=== PATIENT | male | born 1930 | race Caucasian/White ===

== ENCOUNTER 2017-02-10 00:09 | Inpatient (IN) | payer MEDICARE, OTHER ==
[~2017-02-10] VITALS: Ht 182.9 cm; Wt 81.6 kg
[~2017-02-10 00:09] MED LIST: ALLO100T PO; APIX5TAB PO; CIPR500T94 PO; DOXY100C2 PO; LEVO500T38 PO; QUIN20TA7 PO; SIMV10TA3 PO; TAMS0.4C2 PO
--- NOTE | 2017-02-10 00:37 | PHYS DOC ---
Past Medical History Past Medical History: Hypertension, Other Additional Past Medical Histor: urinary retention, ENLARGED PROSTATE Past Surgical History: Tonsillectomy, Other Additional Past Surgical Histo: hernia Alcohol Use: Occasionally Drug Use: None Adult General Chief Complaint Chief Complaint: URINARY FREQUENCY [facility] HPI Patient is a 87 year old male who presents with urinary incontinence for the past 4 hours. Patient states he had the urge to go have her can make to the bathroom. Patient denies any fevers chills. Patient denies any burning urination. Patient states this has not happened to him before. Patient has no other complaints. Patient denies any prostate issues. Pertinent exam findings: Mild suprapubic tenderness ED course: CBC, CMP, UA ordered 0139: Lab results were explained to the patient who states he is still incontinent of urine and complains of suprapubic abdominal pain therefore will order a CT scan of the abdomen and pelvis with contrast at this time 0232: Discussed CT results with the patient and the plan to admit the hospital for further evaluation and management 0233: We'll patient to Dr. Adam Pertinent results: 1. There is moderate bilateral hydroureteronephrosis. There is bilateral periureteral stranding and severe left perinephric stranding. No obstructing process is seen. The bladder is moderately distended but is not thick walled. The prostate is moderately enlarged and heterogeneous. Findings may be due to bladder outlet obstruction. 2. There is a large right inguinal hernia extending down into the scrotum that contains multiple nondilated distal small bowel loops. The hernia has a wide neck. There is no small bowel obstruction. ED decision-making: After reviewing the chart, chief complaint, history of present illness, past medical history, physical exam, lab results, CT results will but the patient for further evaluation and management for his bilateral hydronephrosis and hydroureter ingunal hernia. We'll place a Peters the patient to help relief the bladder outlet obstruction Review of Systems Review of Systems Constitutional: Denies fever or chills [] Eyes: Denies change in visual acuity, redness, or eye pain [] HENT: Denies nasal congestion or sore throat [] Respiratory: Denies cough or shortness of breath [] Cardiovascular: No additional information not addressed in HPI [] GI: Denies abdominal pain, nausea, vomiting, bloody stools or diarrhea [] : Incontinent Musculoskeletal: Denies back pain or joint pain [] Integument: Denies rash or skin lesions [] Neurologic: Denies headache, focal weakness or sensory changes [] Endocrine: Denies polyuria or polydipsia [] Current Medications Current Medications Current Medications Medications (Trade) Dose Ordered Sig/Catracho Start Time Stop Time Status Last Admin Dose Admin Info (Do NOT chart on this entry -- for MONITORING) 1 each PRN DAILY PRN 02/10/17 01:45 02/12/17 01:44 Iohexol (Omnipaque 300 Mg/ml) 75 ml 1X ONCE 02/10/17 02:00 02/10/17 02:01 DC 02/10/17 02:05 75 ML Allergies Allergies Allergies Coded Allergies Type Severity Reaction Last Updated Verified Penicillins Allergy Intermediate HIVES 05/08/16 No Physical Exam Physical Exam Constitutional: Well developed, well nourished, no acute distress, non-toxic appearance. [] HENT: Normocephalic, atraumatic, bilateral external ears normal, oropharynx moist, no oral exudates, nose normal. [] Eyes: PERRLA, EOMI, conjunctiva normal, no discharge. [] Neck: Normal range of motion, no tenderness, supple, no stridor. [] Cardiovascular:Heart rate regular rhythm, no murmur [] Lungs & Thorax: Bilateral breath sounds clear to auscultation [] Abdomen: Bowel sounds normal, soft, mild suprapubic tenderness, no masses, no pulsatile masses. [] Skin: Warm, dry, no erythema, no rash. [] Back: No tenderness, no CVA tenderness. [] Extremities: No tenderness, no cyanosis, no clubbing, ROM intact, no edema. [] Neurologic: Alert and oriented X 3, normal motor function, normal sensory function, no focal deficits noted. [] Psychologic: Affect normal, judgement normal, mood normal. [] Current Patient Data Vital Signs Vital Signs Date Time Temp Pulse Resp B/P (MAP) Pulse Ox O2 Delivery O2 Flow Rate FiO2 02/10/17 00:20 97.6 90 16 142/61 (88) 94 Room Air 97.6 Lab Values Laboratory Tests Test 02/10/17 00:39 White Blood Count 10.7 x10^3/uL (4.0-11.0) Red Blood Count 5.51 x10^6/uL (4.30-5.70) Hemoglobin 15.3 g/dL (13.0-17.5) Hematocrit 44.8 % (39.0-53.0) Mean Corpuscular Volume 81 fL (79-100) Mean Corpuscular Hemoglobin 28 pg (25-35) Mean Corpuscular Hemoglobin Concent 34 g/dL (31-37) Red Cell Distribution Width 13.4 % (11.5-14.5) Platelet Count 160 x10^3/uL (140-400) Neutrophils (%) (Auto) 86 % (31-73) H Lymphocytes (%) (Auto) 9 % (24-48) L Monocytes (%) (Auto) 4 % (0-9) Eosinophils (%) (Auto) 1 % (0-3) Basophils (%) (Auto) 0 % (0-3) Neutrophils # (Auto) 9.2 x10^3uL (1.8-7.7) H Lymphocytes # (Auto) 1.0 x10^3/uL (1.0-4.8) Monocytes # (Auto) 0.5 x10^3/uL (0.0-1.1) Eosinophils # (Auto) 0.1 x10^3/uL (0.0-0.7) Basophils # (Auto) 0.0 x10^3/uL (0.0-0.2) Segmented Neutrophils % 86 % (35-66) H Band Neutrophils % 4 % (0-9) Lymphocytes % 8 % (24-48) L Monocytes % 2 % (0-10) Platelet Estimate Adequate (ADEQUATE) Ovalocytes Occ Marie Cells Occ Urine Collection Type Unknown Urine Color Yellow Urine Clarity Clear Urine pH 6.5 Urine Specific [place] 1.010 Urine Protein Negative mg/dL (NEG-TRACE) Urine Glucose (UA) Negative mg/dL (NEG) Urine Ketones (Stick) Negative mg/dL (NEG) Urine Blood Moderate (NEG) Urine Nitrite Negative (NEG) Urine Bilirubin Negative (NEG) Urine Urobilinogen Dipstick 0.2 mg/dL (0.2 mg/dL) Urine Leukocyte Esterase Negative (NEG) Urine RBC 3-5 /HPF (0-2) Urine WBC 0 /HPF (0-4) Urine Squamous Epithelial Cells Occ /LPF Urine Bacteria 0 /HPF (0-FEW) Sodium Level 143 mmol/L (136-145) Potassium Level 3.6 mmol/L (3.5-5.1) Chloride Level 106 mmol/L (98-107) Carbon Dioxide Level 24 mmol/L (21-32) Anion Gap 13 (6-14) Blood Urea Nitrogen 14 mg/dL (8-26) Creatinine 1.0 mg/dL (0.7-1.3) Estimated GFR (Cockcroft-Gault) 70.8 BUN/Creatinine Ratio 14 (6-20) Glucose Level 128 mg/dL (70-99) H Calcium Level 9.5 mg/dL (8.5-10.1) Total Bilirubin 1.0 mg/dL (0.2-1.0) Aspartate Amino Transferase (AST) 18 U/L (15-37) Alanine Aminotransferase (ALT) 18 U/L (16-63) Alkaline Phosphatase 59 U/L (46-116) Total Protein 7.2 g/dL (6.4-8.2) Albumin 4.0 g/dL (3.4-5.0) Albumin/Globulin Ratio 1.3 (1.0-1.7) Laboratory Tests 02/10/17 00:39 Laboratory Tests 02/10/17 00:39 EKG EKG [] Radiology/Procedures Radiology/Procedures CT abd and pelvis 1. There is moderate bilateral hydroureteronephrosis. There is bilateral periureteral stranding and severe left perinephric stranding. No obstructing process is seen. The bladder is moderately distended but is not thick walled. The prostate is moderately enlarged and heterogeneous. Findings may be due to bladder outlet obstruction. 2. There is a large right inguinal hernia extending down into the scrotum that contains multiple nondilated distal small bowel loops. The hernia has a wide neck. There is no small bowel obstruction.[] Course & Med Decision Making Course & Med Decision Making Pertinent Labs and Imaging studies reviewed. (See chart for details) [] Dragon Disclaimer Dragon Disclaimer This electronic medical record was generated, in whole or in part, using a voice recognition dictation system. Departure Departure Impression: Primary Impression: Bladder outlet obstruction Additional Impressions: Hydronephrosis Inguinal hernia Disposition: 09 ADMITTED INPATIENT Admitting Physician: Jose Adam Condition: STABLE Referrals: ARPAN ANDERSON Jr, MD (PCP) Problem Qualifiers Additional Impressions: Hydronephrosis Hydronephrosis type: unspecified Qualified Codes: N13.30 - Unspecified hydronephrosis Inguinal hernia Obstruction and gangrene presence: without obstruction or gangrene Laterality : unilateral Recurrence: non-recurrent Qualified Codes: K40.90 - Unilateral inguinal hernia, without obstruction or gangrene, not specified as recurrent MALIA DAWSON DO February 10, 2017 00:37
[2017-02-10 00:50] LABS: BASO % 0 % (0-3); EOS % 1 % (0-3); HEMATOCRIT 44.8 % (39.0-53.0); HEMOGLOBIN 15.3 g/dL (13.0-17.5); LYMPH % 9 % (24-48); MEAN CORPUSCULAR HEMOGLOBIN 28 pg (25-35); MEAN CORPUSCULAR HGB CONC 34 g/dL (31-37); MEAN CORPUSCULAR VOLUME 81 fL (79-100); MONO % 4 % (0-9); NEUT % 86 % (31-73); PLATELET COUNT 160 x10^3/uL (140-400); RED BLOOD COUNT 5.51 x10^6/uL (4.30-5.70); RED CELL DISTRIBUTION WIDTH 13.4 % (11.5-14.5); WHITE BLOOD COUNT 10.7 x10^3/uL (4.0-11.0)
[2017-02-10 00:53] LABS: BILIRUBIN,URINE NEGATIVE (NEG); GLUCOSE,URINE NEGATIVE (NEG); NITRITE,URINE NEGATIVE (NEG); PH,URINE 6.5; PROTEIN,URINE NEGATIVE (NEG-TRACE); UROBILINOGEN,URINE 0.2 mg/dL (0.2 mg/dL)
[2017-02-10 01:02] LABS: CALCIUM 9.5 mg/dL (8.5-10.1); GFR 70.8; POTASSIUM 3.6 mmol/L (3.5-5.1)
[2017-02-10 01:10] LABS: ALBUMIN/GLOBULIN RATIO 1.3 (1.0-1.7); TOTAL PROTEIN 7.2 g/dL (6.4-8.2)
[2017-02-10 01:18] LABS: BACTERIA,URINE 0 /HPF (0-FEW); SQUAMOUS EPITHELIAL CELL,UR OCC /LPF; WBC,URINE 0 /HPF (0-4)
[2017-02-10 01:30] LABS: BURR CELLS OCC; OVALOCYTES OCC; PLT ESTIMATE ADEQUATE (ADEQUATE)
[2017-02-10] MEDS ORDERED: CONTRAST GIVEN MC PRN (01:45)
[2017-02-10] MEDS ORDERED: IOHEXOL 300 MG/ML 75 ML VIAL IV ONE (02:00)
--- NOTE | 2017-02-10 02:20 | RAD ---
PROCEDURE CT abdomen pelvis with contrast. HISTORY Urinary frequency, incontinence. Suprapubic abdominal pain. TECHNIQUE Helical CT imaging of the abdomen and pelvis is performed after 75 cc Omnipaque 300 IV contrast. Oral contrast not given. PQRS: One or more the following individualized dose reduction techniques were utilized for the study: 1. Automated exposure control. 2. Adjustment of the mA and/or kV according to patient size. 3. Use of iterative reconstruction technique. COMPARISON None. FINDINGS Lung bases clear. Cardiac size normal. Coronary artery disease. Calcified granulomas in the spleen. Spleen size upper limits of normal. The liver, gallbladder, pancreas, adrenal glands, and abdominal aortic caliber are normal. There is moderate bilateral hydroureteronephrosis. There is severe left perinephric stranding. There is bilateral periureteral stranding. An obstructing calculus is not seen. The bladder is moderately distended. No urinary bladder wall thickening. The prostate is moderately enlarged and heterogeneous. There is a punctate nonobstructing right renal calculus. Stomach unremarkable. Small duodenal diverticulum. There is a large right inguinal hernia extending down in to the scrotum that contains multiple loops of nondilated small bowel. There are a few diverticula of the sigmoid colon without inflammation. The appendix is normal. Terminal ileum is normal. No pelvic free fluid. Mild right convexity lumbar scoliosis. There is degenerative spondylosis. IMPRESSION 1. There is moderate bilateral hydroureteronephrosis. There is bilateral periureteral stranding and severe left perinephric stranding. No obstructing process is seen. The bladder is moderately distended but is not thick walled. The prostate is moderately enlarged and heterogeneous. Findings may be due to bladder outlet obstruction. 2. There is a large right inguinal hernia extending down into the scrotum that contains multiple nondilated distal small bowel loops. The hernia has a wide neck. There is no small bowel obstruction. Electronically signed by: Torrey Adame MD (February 10, 2017 02:18:11)
--- NOTE | 2017-02-10 03:27 | ACF ---
Admission Forms Criteria UROLOGIC DISEASE GRG Clinical Indications for Admission to Inpatient Care (Place ' X' for any and all applicable criteria): Hospital admission is needed for appropriate care of the patient because of 1 or more of the following: [X]I. New-onset Reduced urine output, or hydronephrosis remaining after emergency or observation level care (as appropriate ) [ ]II. Renal disease needing inpatient care indicated by 1 or more of the following(2)(3)(4): [ ]a) Acute renal failure [ ]b) Significant uremic complications [ ]c) Acute kidney injury (that does not qualify as Acute renal failure ) requiring inpatient care indicated by ALL of the following(5)(6)(7)(8) (9): [ ]i) Worsening clinical status (eg, rising creatinine) despite outpatient and observation care treatment (eg, hydration) [ ]ii) Acute kidney injury indicated by 1 or more of the following: [ ]1) 2-fold or more rise in serum creatinine from baseline [ ]2) Reduction of more than 50% in estimated glomerular filtration rate from baseline [ ]3) Urine output less than 0.5 mL/kg/hr for 12 hours despite adequate volume status [ ]d) Systemic cause (eg, Goodpasture syndrome ) needing inpatient care [ ]e) Rapidly progressive renal disease needing inpatient care (eg, plasmapheresis, immunosuppression ) Anasarca needing inpatient care [ ]f) Hemoptysis [ ]g) Hemolysis, thrombosis, or infraction [ ]h) Anasarca needing inpatient care [ ]III. New-onset or uncontrolled nephrogenic diabetes insipidus [ ]IV. Urologic infection requiring inpatient care as indicated by 1 or more of the following(10)(11)(12): [ ]a) Hemodynamic instability [ ]b) Dehydration that is severe or persistent [ ]c) Failure of outpatient treatment [ ]d) Nati's gangrene [ ]e) Urinary obstruction [ ]f) Immunocompromised state (eg, chronic steroid use ) [ ]g) Known renal or urologic abnormalities(eg, indwelling catheter, structural abnormalities ) [ ]h) Recent urologic manipulation or procedure Urinary obstruction [ ]i) Abscess requiring drainage Immunocompromised state [ ]V. Acute urinary retention requiring inpatient management as indicated by ANY ONE of the following(1)(13): [ ]a) Retention cannot be alleviated via emergency or observation level care (eg, urinary catheter placement) [ ]b) Hemodynamic instability [ ]c) Acute neurologic etiology (eg, cauda equina) [ ]d) Dehydration or other complications not manageable with emergency or observation level care [ ]e) Acute kidney injury (that does not qualify as Acute renal failure ) requiring inpatient care indicated by ALL of the following(5)(6)(7)(8) (9): [ ]i) Acute kidney injury indicated by ANY ONE of the following: [ ]1) 2-fold or more rise in serum creatinine from baseline [ ]2) Reduction of more than 50% in estimated glomerular filtration rate from baseline [ ]ii) Worsening clinical status (eg, rising creatinine) despite outpatient and observation care treatment (eg, hydration) [ ]. Gross hematuria requiring inpatient management as indicated by ANY ONE of the following(1)(2): [ ]a) Evidence of renal obstruction [ ]b) Reduced urine output [ ]c) Clot retention after urinary catheterization and irrigation [ ]d) Severe Anemia [ ]e) Systemic cause needing inpatient treatment (eg, Goodpasture syndrome) [ ]VII. Priapism not responsive to emergency or observation care treatment [ ]VII. Scrotal, testicular, or epididymal disorder requiring inpatient care indicated by 1 or more of the following(1)(14)(15)(16): [ ]a) Scrotal edema or infection not manageable with emergency or observation level care [ ]b) Orchitis not manageable with emergency or observation level care [ ]c) Epididymitis not manageable with emergency or observation level of care [ ]d) Other scrotal, testicular, or epididymal disorder (eg, infection, inflammation) not manageable with emergency or observation level care [ ]IX. Complications of transplanted kidney indicated by 1 or more of the following [ ]a) Acute graft rejection requiring inpatient management (eg, intravenous immunosuppression) [ ]b) Acute kidney injury indicated by ALL of the following i) Acute kidney injury indicated by 1 or more of the following 1) 2-fold or more rise in serum creatinine from baseline 2) Reduction of more than 50% in estimated glomerular filtration rate from baseline 3) Urine output less than 0.5 mL/kg/hr for 12 hours despite adequate volume status ii) Kidney injury too severe or not responsive to outpatient and observation care treatment (eg, hydration) [ ]c) Infection requiring inpatient management (eg, Hemodynamic instability, need for intravenous antimicrobial treatment) [ ]d) Other complication of transplanted kidney requiring patient management (eg, severe diarrhea leading to malabsorption) [ ]X. Trauma to renal, genital, or urologic system requiring inpatient medical care [ ]XI. Urologic Disease condition, symptom, or finding for which emergency and observation care have failed or are not considered appropriate. The original [employer] content created by [employer] has been revised. The portions of the content which have been revised are identified through the use of italic text or in bold, and [facility] has neither reviewed nor approved the modified material. All other unmodified content is copyright [employer]. Please see references footnoted in the original [employer] edition 2016 Admission Criteria Met?: Yes CHRIS TSAI February 10, 2017 03:27
[2017-02-10] MEDS ORDERED: IV NORMAL SALINE 1000ML BAG 1,000 ML IV SCH (03:52)
[2017-02-10] MEDS ORDERED: ONDANSETRON PF 4 MG/2 ML VIAL. IV PRN (04:00)
[2017-02-10] MEDS: MORPHINE SULFATE 4 MG/ML DISP.SYRIN. IV PRN ×2 (04:05→07:38)
[2017-02-10 06:45] VITALS: BP 188/101
[2017-02-10 06:55] VITALS: BP 145/82
[2017-02-10 10:50] VITALS: BP 169/99
[2017-02-10] MEDS ORDERED: APIXABAN 5 MG TABLET. PO SCH (11:30)
[2017-02-10] MEDS ORDERED: TAMSULOSIN 0.4 MG CAP.ER.24H. PO SCH (11:30)
[2017-02-10] MEDS ORDERED: LISINOPRIL 20 MG TABLET PO SCH (11:30)
[2017-02-10] MEDS ORDERED: amLODIPine BESYLATE 10 MG TABLET PO SCH (12:00)
[2017-02-10 12:07] LABS: INR 1.2 (0.8-1.1); PROTHROMBIN TIME PATIENT 14.9 SEC (11.7-14.0)
[2017-02-10] MEDS ORDERED: ALLOPURINOL 100 MG TABLET. PO SCH (13:00)
--- NOTE | 2017-02-10 13:36 | HP ---
ADMIT DATE: 02/10/2017 CHIEF COMPLAINT: Abdominal pain and urinary frequency. HISTORY OF PRESENT ILLNESS: The patient is a pleasant, 87-year-old male presents with severe urinary hesitation and frequency. We noted that he has had greater than 1000 mL of urine in his bladder. He seems to have severe prostate issues. We tried to place a Peters, is not really working very well. We consulted Genitourinary ____. The plan is to have a suprapubic Peters catheter placed by Interventional Radiology, should be noted the patient also has hydronephrosis and incidentally has a significant right inguinal hernia. PAST MEDICAL HISTORY: Noncompliance, hypertension, BPH, tonsillectomy and hernia. ALLERGIES: PENICILLIN. FAMILY HISTORY: Hypertension. SOCIAL HISTORY: Does not drink, smoke or take drugs. He is retired man. MEDICATIONS: Reviewed, please refer to the MRAD. REVIEW OF SYSTEMS: GENERAL: No history of weight change, weakness or fevers. SKIN: No bruising, hair changes or rashes. EYES: No blurred, double or loss of vision. NOSE AND THROAT: No history of nosebleeds, hoarseness or sore throat. HEART: No history of palpitations, chest pain or shortness of breath on exertion. LUNGS: Denies cough, hemoptysis, wheezing or shortness of breath. GASTROINTESTINAL: He complains of abdominal pain and right inguinal hernia. GENITOURINARY: He complains of urinary frequency. NEUROLOGIC: Denies history of numbness, tingling, tremor or weakness. PSYCHIATRIC: No history of panic, anxiety or depression. ENDOCRINE: No history of heat or cold intolerance, polyuria or polydipsia. EXTREMITIES: Denies muscle weakness, joint pain, pain on walking or stiffness. PHYSICAL EXAMINATION: VITAL SIGNS: Temperature afebrile, pulse 98, respirations 18, blood pressure 135/90. GENERAL: He is alert, cooperative. HEART: Normal S1, S2. LUNGS: Clear. ABDOMEN: Soft, positive bowel sounds. Tender in the lower quadrants. He has got right inguinal hernia. EXTREMITIES: No edema. SKIN: No rashes. PSYCHIATRIC: He is stable. VASCULAR: Good capillary refill. ENDOCRINE: No thyromegaly. LYMPHATICS: No cervical nodes. HEMATOPOIETIC: No bruising. GENITOURINARY: He has got a Peters in place, but showing not working. LABORATORY DATA: White count 10, hemoglobin 15, platelets 160. Electrolytes are normal. ASSESSMENT AND PLAN: Severe BPH with bladder obstruction. The patient has been admitted, will consult ____ for suprapubic Peters catheter. Regarding the inguinal hernia, we are consulting Dr. Acosta, gentle IV fluids, PT, OT. Resume home medicines. PROGNOSIS: Guarded. ARRON ADHIKARI DO DR: YENNIFER/rivka JOB#: [id number] / [id number]
[2017-02-10] MEDS ORDERED: SIMVASTATIN 10 MG TABLET PO SCH (21:00)
== END 2017-02-10 14:36 | disposition short-term general hospital (02) | DRG 726 ==
LOC: ER 00:09 → 6 SOUTH 02:32
PROVIDERS: ADMIT Internal Medicine; ATTEND Internal Medicine
DX: N40.1 Benign prostatic hyperplasia with lower urinary tract symptoms (principal); N13.30 Unspecified hydronephrosis; K40.90 Unilateral inguinal hernia, without obstruction or gangrene, not specified as recurrent; I10 Essential (primary) hypertension; R35.0 Frequency of micturition; Z88.0 Allergy status to penicillin; Z91.19 Patient's noncompliance with other medical treatment and regimen; Z82.49 Family history of ischemic heart disease and other diseases of the circulatory system; N32.0 Bladder-neck obstruction
CPT/HCPCS: 36415; 74177; 80053; 81001; 85007; 85027; 85610; 96361; 96374; A4314; J2270; J2405; J7030; Q9967; 99285-25

== ENCOUNTER 2017-02-10 20:52 | Emergency (ER) | payer MEDICARE, OTHER ==
[2017-02-10 21:00] VITALS: BP 125/60
--- NOTE | 2017-02-10 21:38 | PHYS DOC ---
Past Medical History Past Medical History: Hypertension, Other Additional Past Medical Histor: urinary retention, ENLARGED PROSTATE Past Surgical History: Tonsillectomy, Other Additional Past Surgical Histo: hernia Alcohol Use: Occasionally Drug Use: None Adult General Chief Complaint Chief Complaint: OTHER COMPLAINTS HPI HPI Patient is a 87 year old male with history of hypertension and BPH who presents today with catheter problem. Patient states he got a catheter placed at [facility] today and he wants it adjusted so that he is comfortable. Patient has no other complaints. He is a very poor historian. Review of Systems Review of Systems Constitutional: Denies fever or chills [] Eyes: Denies change in visual acuity, redness, or eye pain [] HENT: Denies nasal congestion or sore throat [] Respiratory: Denies cough or shortness of breath [] Cardiovascular: No additional information not addressed in HPI [] GI: Denies abdominal pain, nausea, vomiting, bloody stools or diarrhea [] : catheter adjustment Musculoskeletal: Denies back pain or joint pain [] Integument: Denies rash or skin lesions [] Neurologic: Denies headache, focal weakness or sensory changes [] Endocrine: Denies polyuria or polydipsia [] Allergies Allergies Allergies Coded Allergies Type Severity Reaction Last Updated Verified Penicillins Allergy Intermediate HIVES 05/08/16 No Physical Exam Physical Exam Constitutional: Well developed, well nourished, no acute distress, non-toxic appearance. [] HENT: Normocephalic, atraumatic, bilateral external ears normal, oropharynx moist, no oral exudates, nose normal. [] Eyes: PERRLA, EOMI, conjunctiva normal, no discharge. [] Neck: Normal range of motion, no tenderness, supple, no stridor. [] Cardiovascular:Heart rate regular rhythm, no murmur [] Lungs & Thorax: Bilateral breath sounds clear to auscultation [] Abdomen: Bowel sounds normal, soft, no tenderness, no masses, no pulsatile masses. [] Patient has a catheter with a leg bag well attached to the right leg by the RN. Skin: Warm, dry, no erythema, no rash. [] Back: No tenderness, no CVA tenderness. [] Extremities: No tenderness, no cyanosis, no clubbing, ROM intact, no edema. [] Neurologic: Alert and oriented X 3, normal motor function, normal sensory function, no focal deficits noted. [] Psychologic: Affect normal, judgement normal, mood normal. [] Current Patient Data Vital Signs Vital Signs Date Time Temp Pulse Resp B/P (MAP) Pulse Ox O2 Delivery O2 Flow Rate FiO2 02/10/17 21:00 98.0 80 16 96 Room Air 98.0 EKG EKG [] Radiology/Procedures Radiology/Procedures [] Course & Med Decision Making Course & Med Decision Making Pertinent Labs and Imaging studies reviewed. (See chart for details) This is an 87-year-old male patient very poor historian who presents to the ED today requesting his catheter to be adjusted. He states the catheter was placed by [facility] today but he feels they did not put the leg bag in the right position. The leg bag was adjusted by RN and patient was discharged. F/u with his urologist Deyanira Disclaimer Deyanira Disclaimer This electronic medical record was generated, in whole or in part, using a voice recognition dictation system. Departure Departure Impression: Primary Impression: Malfunction of Peters catheter Disposition: HOME, SELF-CARE Condition: STABLE Referrals: ARPAN ANDERSON Jr, MD (PCP) follow up with your urologist on Sunday GABRIEL KIRBY MD Patient Instructions: Peters Catheter Care, Adult Additional Instructions: We adjusted your Peters catheter. Follow-up with the urologist on Sunday. Problem Qualifiers Primary Impression: Malfunction of Peters catheter Encounter type: initial encounter Qualified Codes: T83.011A - Breakdown ( mechanical) of indwelling urethral catheter, initial encounter GUILLERMO NIETO APRN February 10, 2017 21:38
== END 2017-02-10 21:45 | disposition home or self-care (01) ==
LOC: ER 20:52
DX: T83.011A Breakdown (mechanical) of indwelling urethral catheter, initial encounter (principal); I10 Essential (primary) hypertension; Z98.890 Other specified postprocedural states; N40.0 Benign prostatic hyperplasia without lower urinary tract symptoms; Z88.0 Allergy status to penicillin; Y93.89 Activity, other specified; Y99.8 Other external cause status; Y92.89 Other specified places as the place of occurrence of the external cause
CPT/HCPCS: 99281

== ENCOUNTER 2017-02-12 19:47 | Emergency (ER) | payer MEDICARE, OTHER ==
[2017-02-12 20:14] VITALS: BP 125/60
--- NOTE | 2017-02-12 20:43 | PHYS DOC ---
Past Medical History Past Medical History: Hypertension, Other Additional Past Medical Histor: urinary retention, ENLARGED PROSTATE Past Surgical History: Tonsillectomy, Other Additional Past Surgical Histo: hernia Alcohol Use: Occasionally Drug Use: None Adult General Chief Complaint Chief Complaint: URINE CATHETER PROBLEM [place] Patient is a 87 year old male who presents with a catheter problem. Patient states his catheter disconnected from tube to the back. He has history of BPH and follows up with Dr. Peng. He has an appointment tomorrow morning. Patient denies any difficulty voiding. Denies any fever. Denies any dysuria nausea vomiting. Review of Systems Review of Systems Constitutional: Denies fever or chills [] Eyes: Denies change in visual acuity, redness, or eye pain [] HENT: Denies nasal congestion or sore throat [] Respiratory: Denies cough or shortness of breath [] Cardiovascular: No additional information not addressed in HPI [] GI: Denies abdominal pain, nausea, vomiting, bloody stools or diarrhea [] : Catheter problem Musculoskeletal: Denies back pain or joint pain [] Integument: Denies rash or skin lesions [] Neurologic: Denies headache, focal weakness or sensory changes [] Endocrine: Denies polyuria or polydipsia [] Allergies Allergies Allergies Coded Allergies Type Severity Reaction Last Updated Verified Penicillins Allergy Intermediate HIVES 05/08/16 No Physical Exam Physical Exam Constitutional: Well developed, well nourished, no acute distress, non-toxic appearance. [] HENT: Normocephalic, atraumatic, bilateral external ears normal, oropharynx moist, no oral exudates, nose normal. [] Eyes: PERRLA, EOMI, conjunctiva normal, no discharge. [] Neck: Normal range of motion, no tenderness, supple, no stridor. [] Cardiovascular:Heart rate regular rhythm, no murmur [] Lungs & Thorax: Bilateral breath sounds clear to auscultation [] Abdomen: Bowel sounds normal, soft, no tenderness, no masses, no pulsatile masses. [] Male : Patient has a catheter that is draining well. It was connected by RN. Skin: Warm, dry, no erythema, no rash. [] Back: No tenderness, no CVA tenderness. [] Extremities: No tenderness, no cyanosis, no clubbing, ROM intact, no edema. [] Neurologic: Alert and oriented X 3, normal motor function, normal sensory function, no focal deficits noted. [] Psychologic: Affect normal, judgement normal, mood normal. [] Current Patient Data Vital Signs Vital Signs Date Time Temp Pulse Resp B/P (MAP) Pulse Ox O2 Delivery O2 Flow Rate FiO2 02/12/17 20:14 98.8 80 16 96 Room Air 98.8 EKG EKG [] Radiology/Procedures Radiology/Procedures [] Course & Med Decision Making Course & Med Decision Making Pertinent Labs and Imaging studies reviewed. (See chart for details) Patient is in the ED because he is concerned his catheter was disconnected at the bag. RN reconnected it and he was discharged. He is to follow-up with his own doctor tomorrow, he states he has an appointment tomorrow. Dragon Disclaimer Dragon Disclaimer This electronic medical record was generated, in whole or in part, using a voice recognition dictation system. Departure Departure Impression: Primary Impression: Peters catheter problem Disposition: HOME, SELF-CARE Condition: STABLE Referrals: ARPAN ANDERSON Jr, MD (PCP) follow up with your urologist tomorrow Patient Instructions: Indwelling Urinary Catheter Care-Brief Additional Instructions: Your catheter was connected. Follow-up with the urologist tomorrow as scheduled. Come back to the ED if you have any further concerns. Problem Qualifiers Primary Impression: Peters catheter problem Encounter type: initial encounter Qualified Codes: T83.9XXA - Unspecified complication of genitourinary prosthetic device, implant and graft, initial encounter GUILLERMO NIETO APRN February 12, 2017 20:43
== END 2017-02-12 21:00 | disposition home or self-care (01) ==
LOC: ER 19:47
DX: T83.028A Displacement of other urinary catheter, initial encounter (principal); I10 Essential (primary) hypertension; N40.0 Benign prostatic hyperplasia without lower urinary tract symptoms; Z88.0 Allergy status to penicillin; Y84.6 Urinary catheterization as the cause of abnormal reaction of the patient, or of later complication, without mention of misadventure at the time of the procedure; Y92.89 Other specified places as the place of occurrence of the external cause
CPT/HCPCS: 99284

== ENCOUNTER 2017-02-23 05:29 | Emergency (ER) | payer MEDICARE, OTHER ==
[~2017-02-23] VITALS: Ht 182.9 cm; Wt 81.6 kg
[2017-02-23] MEDS ORDERED: TAMS0.4C2 PO (05:47)
--- NOTE | 2017-02-23 05:48 | PHYS DOC ---
Past Medical History Past Medical History: Hypertension, Other Additional Past Medical Histor: urinary retention, ENLARGED PROSTATE Past Surgical History: Tonsillectomy, Other Additional Past Surgical Histo: hernia Alcohol Use: Occasionally Drug Use: None Adult General Chief Complaint Chief Complaint: URINARY RETENTION HPI HPI Patient is a 87 year old male who presents with inability to urinate since yesterday afternoon. He feels the urge to urinate and has constant minimal suprapubic abdominal pressure. He denies back pain, saddle anesthesia, bowel dysfunction, numbness, tingling, weakness, dysuria, hematuria, fever or chills, nausea or vomiting, constipation, diarrhea. He notes stopping taking Flomax 2 weeks ago because everything was going okay. He states he has had a Peters catheter placed multiple times prior for urinary retention. Review of Systems Review of Systems Constitutional: Denies fever or chills [] Eyes: Denies change in visual acuity, redness, or eye pain [] HENT: Denies nasal congestion or sore throat [] Respiratory: Denies cough or shortness of breath [] Cardiovascular: No additional information not addressed in HPI [] GI: Denies nausea, vomiting, bloody stools or diarrhea [] : Denies dysuria or hematuria [] Musculoskeletal: Denies back pain or joint pain [] Integument: Denies rash or skin lesions [] Neurologic: Denies headache, focal weakness or sensory changes [] Endocrine: Denies polyuria or polydipsia [] Allergies Allergies Allergies Coded Allergies Type Severity Reaction Last Updated Verified Penicillins Allergy Intermediate HIVES 05/08/16 No Physical Exam Physical Exam Constitutional: Well developed, well nourished, no acute distress, non-toxic appearance. [] HENT: Normocephalic, atraumatic, bilateral external ears normal, oropharynx moist, nose normal. [] Eyes: PERRLA, EOMI. [] Neck: Normal range of motion, supple. [] Cardiovascular:Heart rate regular rhythm [] Lungs & Thorax: Bilateral breath sounds clear to auscultation [] Abdomen: Bowel sounds normal, soft, no tenderness. [] Skin: Warm, dry, no erythema, no rash. [] Back: No tenderness, no CVA tenderness. [] Extremities: No tenderness, ROM intact, no edema. [] Neurologic: Alert and oriented X 3, normal motor function, normal sensory function, no focal deficits noted. [] Psychologic: Affect normal, judgement normal, mood normal. [] Current Patient Data Vital Signs Vital Signs Date Time Temp Pulse Resp B/P (MAP) Pulse Ox O2 Delivery O2 Flow Rate FiO2 02/23/17 05:36 97.9 88 16 183/112 (135) 96 Room Air 97.9 Course & Med Decision Making Course & Med Decision Making Catheter placed with approx. 700ml of clear yellow urine out. Has relief of abdominal pressure. Changed to leg bag. Encouraged to take flomax and follow up with urology. Return precautions given. He understands and agrees with plan. Dragon Disclaimer Dragon Disclaimer This electronic medical record was generated, in whole or in part, using a voice recognition dictation system. Departure Departure Impression: Primary Impression: Urinary retention Disposition: HOME, SELF-CARE Condition: STABLE Referrals: ARPAN ANDERSON Jr, MD (PCP) SERENA MAHAJAN DO Patient Instructions: Urinary Retention, Acute, Male, [id number] Additional Instructions: Take tamsulosin daily as prescribed. Follow-up with your primary care doctor and urologist within one week. Please call for appointment. Return for any concerns. Scripts Tamsulosin Hcl (TAMSULOSIN HCL) 0.4 Mg Cap.er.24h 0.4 MG PO DAILY for 30 Days, #30 TAB Prov: Mary ESCALANTE MD 02/23/17 Mary ESCALANTE MD February 23, 2017 05:48
[2017-02-23 06:00] VITALS: BP 150/83
[2017-02-23 06:00] LABS: BILIRUBIN,URINE NEGATIVE (NEG); GLUCOSE,URINE NEGATIVE (NEG); NITRITE,URINE NEGATIVE (NEG); PROTEIN,URINE NEGATIVE (NEG-TRACE)
[2017-02-23 06:05] LABS: WBC,URINE 20-40 /HPF (0-4)
[2017-02-23 06:06] LABS: BACTERIA,URINE MANY /HPF (0-FEW)
[2017-02-23] MEDS ORDERED: SULF1TAB24 PO (18:34)
[2017-02-23] MEDS ORDERED: POTA40LI3 PO (18:34)
== END 2017-02-23 06:08 | disposition home or self-care (01) ==
LOC: ER 05:29
DX: R33.9 Retention of urine, unspecified (principal); I10 Essential (primary) hypertension; N40.0 Benign prostatic hyperplasia without lower urinary tract symptoms; Z88.0 Allergy status to penicillin
CPT/HCPCS: 51702; 81001; 87086; 99284-25

== ENCOUNTER 2017-02-23 15:01 | Emergency (ER) | payer MEDICARE, OTHER ==
[~2017-02-23] VITALS: Ht 182.9 cm; Wt 83.9 kg
[2017-02-23 15:34] VITALS: BP 157/81
--- NOTE | 2017-02-23 16:24 | ED.ADGEN ---
Past Medical History Past Medical History: A-Fib, Hypertension, Prostatitis Additional Past Medical Histor: urinary retention, ENLARGED PROSTATE Past Surgical History: Tonsillectomy, TURP, Other Additional Past Surgical Histo: tumor removal R shoulder Alcohol Use: Occasionally Drug Use: None Adult General Chief Complaint Chief Complaint: BLOOD IN URINE HPI HPI Patient is a 87 year old man, history of atrial fibrillation on Eliquis, with a Peters catheter in place due to urinary retention from enlarged prostate, who presents the emergency department with complaint of hematuria that began this afternoon. Patient states he is having mild cramping in his abdomen and a feeling of "discomfort", but he is draining red tinged urine. He denies any injuries, any back pain or flank pain, any nausea vomiting, any fevers or chills , any focal weakness, numbness, tingling, chest pain, shortness breath or other complaints. He follows with a urologist, has not seen him in some time. He has not recently used any antibiotics or had any other medications or medication changes. No missed doses of medication. Review of Systems Review of Systems Constitutional: Denies fever or chills. [] Eyes: Denies change in visual acuity. [] HENT: Denies nasal congestion or sore throat. [] Respiratory: Denies cough or shortness of breath. [] Cardiovascular: Denies chest pain or edema. [] GI: Denies abdominal pain, nausea, vomiting, bloody stools or diarrhea. [] : Denies dysuria. [Bladder "discomfort", no trauma to the Peters catheter or penile region, noted hematuria about 6 hours ago. Musculoskeletal: Denies back pain or joint pain. [] Integument: Denies rash. [] Neurologic: Denies headache, focal weakness or sensory changes. [] Endocrine: Denies polyuria or polydipsia. [] Lymphatic: Denies swollen glands. [] Psychiatric: Denies depression or anxiety. [] Current Medications Current Medications Current Medications Medications (Trade) Dose Ordered Sig/Catracho Start Time Stop Time Status Last Admin Dose Admin Acetaminophen (Tylenol) 650 mg 1X ONCE 02/23/17 18:30 02/23/17 18:31 DC Potassium Chloride (KCl Oral Soln) 40 meq 1X ONCE 02/23/17 18:45 02/23/17 18:46 Trimethoprim/ Sulfamethoxazole (Bactrim Ds) 1 tab 1X ONCE 02/23/17 18:30 02/23/17 18:31 DC Allergies Allergies Allergies Coded Allergies Type Severity Reaction Last Updated Verified Penicillins Allergy Intermediate HIVES 02/23/17 No Physical Exam Physical Exam Constitutional: Well developed, well nourished, no acute distress, non-toxic appearance. [] HENT: Normocephalic, atraumatic, bilateral external ears normal, oropharynx moist, no oral exudates, nose normal. [] Eyes: PERRLA, EOMI, conjunctiva normal, no discharge. [] Neck: Normal range of motion, no tenderness, supple, no stridor. [] Cardiovascular:Heart rate regular rhythm, no murmur , S1, S2, rubs or gallops. [ ] Lungs & Thorax: Bilateral breath sounds clear to auscultation, no wheezing, rhonchi, rales. No chest or crepitus or tenderness. [] Abdomen: Bowel sounds normal, soft, very mild tenderness palpation in the suprapubic region, no rebound, rigidity, no guarding,, no masses, no pulsatile masses. [] Skin: Warm, dry, no erythema, no rash. [] Back: No tenderness, no CVA tenderness. [] Extremities: No tenderness, no cyanosis, no clubbing, ROM intact, no edema. [] Neurologic: Alert and oriented X 3, normal motor function, normal sensory function, no focal deficits noted. [] Psychologic: Affect normal, judgement normal, mood normal. examination: Patient is uncircumcised, noted of small amount of drainage with retraction of foreskin, glands penis is normal in appearance, with no drainage or lateralizing identified, Peters catheter is in place, with light red urine. No clots identified, urine appears to be draining without issue. Current Patient Data Vital Signs Vital Signs Date Time Temp Pulse Resp B/P (MAP) Pulse Ox O2 Delivery O2 Flow Rate FiO2 02/23/17 15:34 99.3 84 20 157/81 (106) 98 Room Air 99.3 Lab Values Laboratory Tests Test 02/23/17 16:40 02/23/17 17:25 02/23/17 17:36 Urine Collection Type Unknown Urine Color Red Urine Clarity Turbid Urine pH 6.0 Urine Specific [place] 1.015 Urine Protein >=300 mg/dL (NEG-TRACE) Urine Glucose (UA) Negative mg/dL (NEG) Urine Ketones (Stick) 15 mg/dL (NEG) Urine Blood Large (NEG) Urine Nitrite Positive (NEG) Urine Bilirubin Large (NEG) Urine Urobilinogen Dipstick 1.0 mg/dL (0.2 mg/dL) Urine Leukocyte Esterase Large (NEG) Urine RBC Tntc /HPF (0-2) Urine WBC Tntc /HPF (0-4) Urine Squamous Epithelial Cells None /LPF Urine Bacteria Many /HPF (0-FEW) Urine Mucus Slight /LPF Prothrombin Time 16.5 SEC (11.7-14.0) H Prothrombin Time INR 1.4 (0.8-1.1) H PTT 42 SEC (24-38) H POC Hemoglobin 12.6 g/dL (14-18) L POC Hematocrit 37 % (37-52) POC Sodium 141 mmol/L (135-145) POC Potassium 3.1 mmol/L (3.5-5.0) L POC Chloride 100 mmol/L (98-110) POC Total CO2 26 mmol/L (23-32) Anion Gap 18 mmol/L (6-14) H POC Blood Urea Nitrogen 7 mg/dL (8-26) L POC Creatinine 1.0 mg/dL (0.5-1.4) Glucose Level 100 mg/dL (70-99) H POC Ionized Calcium (Ashish) 1.09 mmol/L (1.13-1.32) L Laboratory Tests 02/23/17 17:36 EKG EKG Not indicated. [] Radiology/Procedures Radiology/Procedures Not indicated. [] Course & Med Decision Making Course & Med Decision Making Pertinent Labs and Imaging studies reviewed. (See chart for details) Patient well-appearing, resting comfortable in the emergency department. Urine is positive for nitrates, too numerous to count RBCs, white blood cells and bacteria. Infection with irritation, and use of anticoagulant are likely the cause of the patient's hematuria, which remains mild no shekhar bleeding or clots noted. Peters catheter continues to drain without issue. Patient's coags reveal an INR of 1.4, electrolytes reveal a potassium of 3.1, otherwise are marked, with a creatinine of 1.0. Hemoglobin is 12.6. I did discuss findings as above with the patient's urologist, Dr. Nieves. He requests the patient be initiated on Bactrim, and the patient call him on Sunday to schedule an appointment in the office. I did discuss this with patient, patient is agreeable this plan, we also discussed concerning symptoms that prompt return to the ED. Patient states hypokalemia was treated with oral potassium in the emergency department, he was also given a prescription for 3 days of potassium liquid, was given clear and detailed medication instructions and precautions, was instructed to take food with both his Bactrim and his potassium to prevent stomach upset, to follow-up with his primary care provider for repeat laboratory studies performed. Patient and at bedside voiced understanding and agreement with these instructions and cautions, patient was discharged home in stable condition with prescriptions for potassium, Bactrim, with plan as above. Dragon Disclaimer Dragon Disclaimer This electronic medical record was generated, in whole or in part, using a voice recognition dictation system. Departure Impression: Primary Impression: UTI (urinary tract infection) Additional Impressions: Peters catheter in place Hypokalemia Disposition: HOME, SELF-CARE Condition: STABLE Scripts Potassium Chloride (POTASSIUM CHLORIDE ORAL LIQUID) 40 Meq/15 Ml Liquid 40 MEQ PO DAILY, #50 LIQUID Take 15 mL by mouth once daily for the next 3 days. Please follow the potassium rich dietary instructions. Prov: RICKI ONEILL DO 02/23/17 Sulfamethoxazole/Trimethoprim (BACTRIM DS TABLET) 1 Each Tablet 1 TAB PO BID, #14 TAB Take with food. Prov: RICKI ONEILL DO 02/23/17 Problem Qualifiers RICKI ONEILL DO February 23, 2017 16:24
[2017-02-23 16:51] LABS: BILIRUBIN,URINE LARGE (NEG); GLUCOSE,URINE NEGATIVE (NEG); NITRITE,URINE POSITIVE (NEG); PROTEIN,URINE >=300 mg/dL (NEG-TRACE)
[2017-02-23 16:57] LABS: BACTERIA,URINE MANY /HPF (0-FEW); RBC,URINE TNTC /HPF (0-2); WBC,URINE TNTC /HPF (0-4)
[2017-02-23 17:46] LABS: INR 1.4 (0.8-1.1); PROTHROMBIN TIME PATIENT 16.5 SEC (11.7-14.0)
[2017-02-23 17:52] LABS: POTASSIUM ISTAT 3.1 mmol/L (3.5-5.0)
[2017-02-23] MEDS ORDERED: SMZ/TMP 800/160MG TABLET. PO ONE (18:30)
[2017-02-23] MEDS ORDERED: ACETAMINOPHEN 325 MG TABLET. PO ONE (18:30)
[2017-02-23] MEDS ORDERED: POTA40LI3 PO (18:34)
[2017-02-23] MEDS ORDERED: SULF1TAB24 PO (18:34)
[2017-02-23] MEDS ORDERED: POTASSIUM CHLORIDE 20 MEQ/15 ML ORAL LIQUID. PO ONE (18:45)
== END 2017-02-23 18:52 | disposition home or self-care (01) ==
LOC: ER 15:01
DX: N39.0 Urinary tract infection, site not specified (principal); E87.6 Hypokalemia; I48.91 Unspecified atrial fibrillation; I10 Essential (primary) hypertension; N40.0 Benign prostatic hyperplasia without lower urinary tract symptoms; Z79.01 Long term (current) use of anticoagulants; Z88.0 Allergy status to penicillin
CPT/HCPCS: 36415; 80047; 81001; 85610; 85730; 87086; 87186; 99284

== ENCOUNTER → 2017-03-19 | Outpatient (CLI) | payer MEDICARE, OTHER ==
[2017-02-23 15:34] VITALS: BP 157/81
[~2017-03-19] MED LIST changes: -LEVO500T38 PO; +LEVO500T59 PO; +POTA40LI3 PO; +SULF1TAB24 PO
--- NOTE | 2017-03-19 14:49 | KCIC ---
Testicular ultrasound HISTORY: Right scrotal swelling and redness. FINDINGS: Bowel is identified herniating into the right scrotum. The visualized bowel does demonstrate peristalsis. Right testicle measures 4.0 cm longitudinal with a homogeneous echotexture and normal vascularity. Right epididymal cyst is identified measuring 1 cm diameter. Left testicle measures 3.9 cm longitudinal with homogeneous echotexture and normal vascularity. Left epididymal head appears unremarkable. Small hydrocele. IMPRESSION: 1. Hernia is identified, with bowel identified in the right scrotum. 2. Right epididymal head cyst. Electronically signed by: Lukasz Mcpherson MD (03/19/2017 2:46 PM)
== END | disposition home or self-care (01) ==
LOC: KCIC US 13:20
PROVIDERS: ATTEND Urology
DX: K40.90 Unilateral inguinal hernia, without obstruction or gangrene, not specified as recurrent (principal); N43.0 Encysted hydrocele; L72.0 Epidermal cyst
CPT/HCPCS: 76870

== ENCOUNTER 2017-05-23 09:43 | Observation (INO) | payer MEDICARE, OTHER ==
[~2017-05-23] VITALS: Ht 182.9 cm; Wt 81.2 kg
[2017-05-23] MEDS ORDERED: DONE5TAB7 PO (10:21)
[2017-05-23] MEDS ORDERED: LIDOCAINE 2% PF Vial for OR 5 ML VIAL. ONE (10:31)
[2017-05-23] MEDS ORDERED: ONDANSETRON PF 4 MG/2 ML VIAL. ONE (10:31)
[2017-05-23] MEDS ORDERED: PROPOFOL 20 ML IV ONE (10:31)
[2017-05-23] MEDS ORDERED: DEXAMETHASONE SOD PHOS 20 MG/5 ML VIAL. ONE (10:31)
[2017-05-23] MEDS ORDERED: fentaNYL PF VIAL 100 MCG/2 ML VIAL ONE ×2 (10:33→14:08)
[2017-05-23] MEDS ORDERED: IV RINGERS,LACTATED 1000ML 1,000 ML IV SCH ×2 (10:45→14:43)
[2017-05-23] MEDS ORDERED: BUPIVAC MPF-EPI 0.5%-1:200000 30 ML VIAL. ONE (12:02)
[2017-05-23] MEDS ORDERED: ePHEDrine PF IN SALINE 50 MG/5 ML DISP.SYRIN IV ONE (13:24)
[2017-05-23] MEDS: fentaNYL PF VIAL 100 MCG/2 ML VIAL IV PRN ×2 (14:10→14:24)
--- NOTE | 2017-05-23 14:25 | PDOC ---
BRIEF OPERATIVE NOTE Date: May 23, 2017 Pre-Op Diagnosis right inguinal hernia Post-Op Diagnosis same, indirect, and direct Procedure Performed repair with mesh Surgeon Daryl Anesthesia Type: General Blood Loss 20cc IV Fluid 600cc Specimens Obtained none Findings large indirect hernia sack, small defect in the inguinal floor with herniated fat Complications none OPerative Note Wk # [id number] ROQUE CAMARA MD May 23, 2017 14:25
[2017-05-23] MEDS ORDERED: ONDANSETRON PF 4 MG/2 ML VIAL. IV PRN ×2 (14:30→14:45)
[2017-05-23] MEDS ORDERED: diphenhydrAMINE HCL 25 MG CAPSULE PO PRN (14:30)
[2017-05-23] MEDS ORDERED: 0.9 % SODIUM CHLORIDE 10 ML DISP.SYRIN. IV PRN (14:30)
[2017-05-23] MEDS ORDERED: HYDROmorphone 2 MG/ML VIAL IV PRN ×2 (14:30→14:45)
[2017-05-23] MEDS ORDERED: diphenhydrAMINE 50 MG/ML VIAL IV PRN (14:30)
[2017-05-23] MEDS ORDERED: HYDROcodone/APAP 5/325MG 1 TAB TABLET PO PRN (14:30)
[2017-05-23] MEDS ORDERED: LIDOCAINE 1% 1 ML SYRINGE. ID PRN (14:45)
[2017-05-23] MEDS ORDERED: MORPHINE SULFATE 2 MG/ML DISP.SYRIN. IV PRN (14:45)
[2017-05-23] MEDS ORDERED: PROCHLORPERAZINE 10 MG/2 ML VIAL. IV PRN (14:45)
[2017-05-23] MEDS ORDERED: fentaNYL PF VIAL 100 MCG/2 ML VIAL IV PRN (14:45)
[2017-05-23 15:00] VITALS: BP 156/92
[2017-05-23] MEDS ORDERED: POTASSIUM CL 20MEQ-0.45% NACL 1,000 ML IV SCH (15:00)
[2017-05-23 15:15] VITALS: BP 144/87
[2017-05-23 15:30] VITALS: BP 145/81
[2017-05-23 15:45] VITALS: BP 161/86
[2017-05-23 16:00] VITALS: BP 147/74
[2017-05-23 16:30] VITALS: BP 147/86
[2017-05-23] MEDS ORDERED: HYDR-2758 PO (18:21)
[2017-05-23] MEDS ORDERED: DOCUSATE SODIUM 100 MG CAPSULE. PO SCH (21:00)
[2017-05-23] MEDS ORDERED: SIMVASTATIN 10 MG TABLET PO SCH (21:00)
--- NOTE | 2017-05-23 22:30 | OP ---
DATE OF SURGERY: 05/23/2017 PREOPERATIVE DIAGNOSIS: Right inguinal hernia. POSTOPERATIVE DIAGNOSIS: Right inguinal hernia, indirect and direct. PROCEDURE: Repair with mesh. SURGEON: Colton Camara MD ANESTHESIA: General LMA. BLOOD LOSS: 20. INTRAVENOUS FLUIDS: 600. INDICATIONS: The patient is an 87-year-old gentleman with a large right inguinal hernia extending down in the right hemiscrotum. He is brought for repair. OPERATIVE FINDINGS: The large hernia was a result of an indirect hernia sac. There was also a small defect in the inguinal floor with extruded preperitoneal fat comprising a direct hernia. OPERATIVE REPORT: The patient was brought to the operating suite, given a general LMA and the right groin was prepped and draped in the usual sterile fashion. Marcaine 0.5% with epinephrine was infiltrated along the incision line. Incision was made and dissection carried down to the external oblique fascia. Bleeders were cauterized or tied as identified. The fascia was opened in direction of its fibers, extended through the external ring. The large indirect sac was freed up from the scrotum and mobilized back to its exit from the internal ring. At that point, it was reduced. The cord structures had a Haugan drain placed around them. A small defect in the floor of the canal was identified with extruded preperitoneal fat. This was reduced and a small defect closed with a stitch 0 Vicryl. The indirect hernia sac was then held in reduction with a plug of mesh, tacked with 2-0 PDS, taking care to avoid injury to the adjacent vessels. The precut "keyhole" patch was then placed over the floor of the canal and the slit closed with a single 2-0 PDS stitch. Area checked for adequate hemostasis and when present and a correct sponge count was obtained, the cord was returned to its normal anatomical position. The external oblique fascia closed over in a running fashion with 3-0 Vicryl. SubQ approximated with 3-0 Vicryl, skin closed with a subcuticular 4-0 Monocryl. Steri-Strips and sterile dressings applied. Prior to emergence from anesthesia, digital rectal exam revealed a 2+ enlarged, slightly firm prostate without nodules. The patient awakened from his anesthetic and taken to the recovery room in satisfactory condition. COLTON CAMARA MD DR: RAY/rivka JOB#: [id number] / [id number] ARPAN Johnson MD
[2017-05-24] MEDS ORDERED: DONEPEZIL HCL 5 MG TABLET. PO SCH (09:00)
[2017-05-24] MEDS ORDERED: TAMSULOSIN 0.4 MG CAP.ER.24H. PO SCH (09:00)
[2017-05-24] MEDS ORDERED: LISINOPRIL 20 MG TABLET PO SCH (09:00)
== END 2017-05-23 19:15 | disposition home or self-care (01) ==
LOC: SURG 09:43 → 4 NORTH 14:45
PROVIDERS: ADMIT Surgery; ATTEND Surgery
DX: K40.90 Unilateral inguinal hernia, without obstruction or gangrene, not specified as recurrent (principal)
CPT/HCPCS: 49505; C1769; C1781; G0378; G0379; J1100; J1956; J2405; J2704; J3010; J3490; J2001

== ENCOUNTER 2017-06-26 21:07 | Emergency (ER) | payer MEDICARE, OTHER ==
[~2017-06-26 21:07] MED LIST changes: +DONE5TAB7 PO; +HYDR-2758 PO; +QUIN20TA17 PO; -QUIN20TA7 PO
[2017-06-26 22:09] VITALS: BP 191/95
--- NOTE | 2017-06-26 22:26 | PHYS DOC ---
Past Medical History Past Medical History: A-Fib, Hypertension, Prostatitis Additional Past Medical Histor: urinary retention, ENLARGED PROSTATE Past Surgical History: Tonsillectomy, TURP, Other Additional Past Surgical Histo: tumor removal R shoulder Alcohol Use: Occasionally Drug Use: None Adult General Chief Complaint Chief Complaint: DENTAL PROBLEM HPI HPI Patient is a 87 year old M who presents with right upper gum bleeding. Patient states he was eating popcorn this evening and one of the seat stuck in his right upper gum. He is on Coumadin for heart disease and it has been bleeding ever since. Patient was able to remove the popcorn kernel while he was in the emergency room before I came in. Patient denies any other symptoms. Patient denies lightheaded dizziness. Patient denies any chest pain shortness of breath. Patient has no other complaints. Review of Systems Review of Systems GEN: Denies fevers, chills, sweats HEENT: Gum bleeding CV: Denies chest pain RESP: Denies shortness of air, cough GI: Denies n/v/d NEURO: Denies confusion, dizziness MSK: Denies weakness, joint pain/swelling Current Medications Current Medications Current Medications Medications (Trade) Dose Ordered Sig/Catracho Start Time Stop Time Status Last Admin Dose Admin Tranexamic Acid (Cyklokapron) 1,000 mg 1X ONCE 06/26/17 22:30 06/26/17 22:31 DC 06/26/17 22:32 1,000 MG Allergies Allergies Allergies Coded Allergies Type Severity Reaction Last Updated Verified Penicillins Allergy Intermediate HIVES 05/23/17 No Physical Exam Physical Exam GEN.: No apparent distress. Alert and oriented. HEENT: Head is normocephalic, atraumatic MOUTH: Patient has multiple teeth missing, bleeding coming from right upper canine tooth where previous popcorn kernel was stuck NECK: Supple. LUNGS: CTAB. HEART: RRR, S1, S2 present. Peripheral pulses intact ABDOMEN: Soft, nontender. Positive bowel sounds. EXTREMITIES: Without any cyanosis. NEUROLOGIC: Normal speech, normal tone PSYCHIATRIC: Normal affect, normal mood. SKIN: No ulcerations Current Patient Data Vital Signs Vital Signs Date Time Temp Pulse Resp B/P (MAP) Pulse Ox O2 Delivery O2 Flow Rate FiO2 06/26/17 22:09 98.0 72 20 97 Room Air 98.0 Lab Values Laboratory Tests Test 9/26/17 22:21 Prothrombin Time 16.8 SEC (11.7-14.0) H Prothrombin Time INR 1.5 (0.8-1.1) H EKG EKG [] Radiology/Procedures Radiology/Procedures [] Course & Med Decision Making Course & Med Decision Making Pertinent Labs and Imaging studies reviewed. (See chart for details) ED course: Patient was seen and examined emergency room PT/INR was ordered along with transient ischemic acid and gauze The transfer him at acid was placed in a gauze and the patient bit down on the gauze and has been holding that for the past hour. 0026: Patient was reevaluated in which the bleeding become has stopped. Patient was updated on his INR which is 1.5 and was told to follow up as PCP to have that rechecked and adjusted. Recommended patient to follow up with dentist for his gum bleeding. MDM: After reviewing the chart, CC/HPI/PMH, physical exam, [lab results], I do not believe the patient's having a significant life-threatening bleed as warranting further workup and/or admission at this time. The patient's gum bleeding had stopped with application of transient acid on gauze. Patient is stable for discharge. Patient was updated on his INR status. Additional verbal discharge instructions were provided to the patient and that if symptoms get worse or any new symptoms arise that are worrisome to the patient he is to return to the emergency room immediately [] Dragon Disclaimer Dragon Disclaimer This electronic medical record was generated, in whole or in part, using a voice recognition dictation system. Departure Departure Impression: Primary Impression: Gums, bleeding Additional Impression: Coagulopathy Disposition: 01 HOME, SELF-CARE Condition: IMPROVED Referrals: ARPAN ANDERSON Jr, MD (PCP) Patient Instructions: Teeth and Gum Care, [id number] Additional Instructions: Please follow up with your dentist and family doctor within the next week. And return if bleeding increases or gets worse. Problem Qualifiers MALIA DAWSON DO Jun 26, 2017 22:26
[2017-06-26] MEDS ORDERED: TRANEXAMIC ACID 1,000 MG/10 ML VIAL. TOP ONE (22:30)
[2017-06-26 22:46] LABS: INR 1.5 (0.8-1.1); PROTHROMBIN TIME PATIENT 16.8 SEC (11.7-14.0)
== END 2017-06-27 00:35 | disposition home or self-care (01) ==
LOC: ER 21:07
DX: K06.8 Other specified disorders of gingiva and edentulous alveolar ridge (principal); D68.9 Coagulation defect, unspecified; I10 Essential (primary) hypertension; I48.91 Unspecified atrial fibrillation; Z79.01 Long term (current) use of anticoagulants; Z88.0 Allergy status to penicillin
CPT/HCPCS: 36415; 85610; 99283

== ENCOUNTER 2017-07-01 05:40 | Emergency (ER) | payer MEDICARE, OTHER ==
[~2017-07-01] VITALS: Ht 185.4 cm; Wt 81.6 kg
--- NOTE | 2017-07-01 06:34 | PHYS DOC ---
Past Medical History Past Medical History: A-Fib, High Cholesterol, Hypertension, Prostatitis Additional Past Medical Histor: urinary retention, ENLARGED PROSTATE Past Surgical History: Tonsillectomy, TURP, Other Additional Past Surgical Histo: tumor removal R shoulder Alcohol Use: Occasionally Drug Use: None Adult General Chief Complaint Chief Complaint: DENTAL PROBLEM [facility] HPI Patient is a 87 year old male who reports that he had right upper tooth removed a few days ago. The patient woke up with bleeding from the site of the tooth extraction. The patient is currently on all questions blood better for his atrial fibrillation. Patient came in via EMS. EMS used quick clot to try and slow the bleeding. The patient is resting in bed in no apparent respiratory distress with stable vital signs. The patient denies complaints at this time. Review of Systems Review of Systems Constitutional: Denies fever or chills [] Eyes: Denies change in visual acuity, redness, or eye pain [] HENT: Denies nasal congestion or sore throat [] Respiratory: Denies cough or shortness of breath [] Cardiovascular: No additional information not addressed in HPI [] GI: Denies abdominal pain, nausea, vomiting, bloody stools or diarrhea [] : Denies dysuria or hematuria [] Musculoskeletal: Denies back pain or joint pain [] Integument: Denies rash or skin lesions [] Neurologic: Denies headache, focal weakness or sensory changes [] Endocrine: Denies polyuria or polydipsia [] Allergies Allergies Allergies Coded Allergies Type Severity Reaction Last Updated Verified Penicillins Allergy Intermediate HIVES 05/23/17 No Physical Exam Physical Exam Constitutional: Well developed, well nourished, no acute distress, non-toxic appearance. [] HENT: Normocephalic, atraumatic, bilateral external ears normal, oropharynx moist, no oral exudates, nose normal. Right upper molar tooth socket with large clot in place and slowing bleeding. [] Eyes: PERRLA, EOMI, conjunctiva normal, no discharge. [] Neck: Normal range of motion, no tenderness, supple, no stridor. [] Cardiovascular:Heart rate regular rhythm, no murmur [] Lungs & Thorax: Bilateral breath sounds clear to auscultation [] Abdomen: Bowel sounds normal, soft, no tenderness, no masses, no pulsatile masses. [] Skin: Warm, dry, no erythema, no rash. [] Back: No tenderness, no CVA tenderness. [] Extremities: No tenderness, no cyanosis, no clubbing, ROM intact, no edema. [] Neurologic: Alert and oriented X 3, normal motor function, normal sensory function, no focal deficits noted. [] Psychologic: Affect normal, judgement normal, mood normal. [] Current Patient Data Vital Signs Vital Signs Date Time Temp Pulse Resp B/P (MAP) Pulse Ox O2 Delivery O2 Flow Rate FiO2 07/01/17 05:41 97.6 89 20 179/84 (115) 98 Room Air 97.6 Lab Values Laboratory Tests Test 07/01/17 07:00 White Blood Count 4.4 x10^3/uL (4.0-11.0) Red Blood Count 4.68 x10^6/uL (4.30-5.70) Hemoglobin 12.8 g/dL (13.0-17.5) L Hematocrit 38.8 % (39.0-53.0) L Mean Corpuscular Volume 83 fL (79-100) Mean Corpuscular Hemoglobin 27 pg (25-35) Mean Corpuscular Hemoglobin Concent 33 g/dL (31-37) Red Cell Distribution Width 13.5 % (11.5-14.5) Platelet Count 106 x10^3/uL (140-400) L Neutrophils (%) (Auto) 65 % (31-73) Lymphocytes (%) (Auto) 26 % (24-48) Monocytes (%) (Auto) 6 % (0-9) Eosinophils (%) (Auto) 3 % (0-3) Basophils (%) (Auto) 1 % (0-3) Neutrophils # (Auto) 2.9 x10^3uL (1.8-7.7) Lymphocytes # (Auto) 1.1 x10^3/uL (1.0-4.8) Monocytes # (Auto) 0.2 x10^3/uL (0.0-1.1) Eosinophils # (Auto) 0.1 x10^3/uL (0.0-0.7) Basophils # (Auto) 0.0 x10^3/uL (0.0-0.2) Prothrombin Time 15.5 SEC (11.7-14.0) H Prothrombin Time INR 1.3 (0.8-1.1) H PTT 36 SEC (24-38) Sodium Level 143 mmol/L (136-145) Potassium Level 3.3 mmol/L (3.5-5.1) L Chloride Level 107 mmol/L (98-107) Carbon Dioxide Level 30 mmol/L (21-32) Anion Gap 6 (6-14) Blood Urea Nitrogen 12 mg/dL (8-26) Creatinine 1.0 mg/dL (0.7-1.3) Estimated GFR (Cockcroft-Gault) 70.8 BUN/Creatinine Ratio 12 (6-20) Glucose Level 113 mg/dL (70-99) H Calcium Level 8.6 mg/dL (8.5-10.1) Total Bilirubin 0.7 mg/dL (0.2-1.0) Aspartate Amino Transferase (AST) 14 U/L (15-37) L Alanine Aminotransferase (ALT) 11 U/L (16-63) L Alkaline Phosphatase 60 U/L (46-116) Total Protein 6.2 g/dL (6.4-8.2) L Albumin 3.5 g/dL (3.4-5.0) Albumin/Globulin Ratio 1.3 (1.0-1.7) Laboratory Tests 07/01/17 07:00 Laboratory Tests 07/01/17 07:00 EKG EKG [] Radiology/Procedures Radiology/Procedures [] Course & Med Decision Making Course & Med Decision Making Pertinent Labs and Imaging studies reviewed. (See chart for details) 07:38 am Patient resting and able to sleep. The dental extraction site is hemostatic with a clot in place. Patient will undergo trial of ambulation if that goes well the patient will be discharged to home with his .[] Dragon Disclaimer Dragon Disclaimer This electronic medical record was generated, in whole or in part, using a voice recognition dictation system. Departure Departure Impression: Primary Impression: Surgical wound hemorrhage after dental procedure Disposition: 01 HOME, SELF-CARE Condition: STABLE Referrals: ARPAN ANDERSON Jr, MD (PCP) Additional Instructions: Please follow-up with your dentist in one to 2 days for a recheck. Please return to the emergency department she did have significant bleeding again. Please deny remove the clot that is formed in the extraction site. This returned emergency department for fevers chills increasing weakness or anything else concerning. VINNIE HAYNES MD Jul 01, 2017 06:34
[2017-07-01 07:09] LABS: BASO % 1 % (0-3); EOS % 3 % (0-3); HEMATOCRIT 38.8 % (39.0-53.0); HEMOGLOBIN 12.8 g/dL (13.0-17.5); LYMPH # 1.1 x10^3/uL (1.0-4.8); LYMPH % 26 % (24-48); MEAN CORPUSCULAR HEMOGLOBIN 27 pg (25-35); MEAN CORPUSCULAR HGB CONC 33 g/dL (31-37); MEAN CORPUSCULAR VOLUME 83 fL (79-100); MONO % 6 % (0-9); NEUT % 65 % (31-73); PLATELET COUNT 106 x10^3/uL (140-400); RED BLOOD COUNT 4.68 x10^6/uL (4.30-5.70); RED CELL DISTRIBUTION WIDTH 13.5 % (11.5-14.5); WHITE BLOOD COUNT 4.4 x10^3/uL (4.0-11.0)
[2017-07-01 07:25] LABS: CALCIUM 8.6 mg/dL (8.5-10.1); GFR 70.8; POTASSIUM 3.3 mmol/L (3.5-5.1)
[2017-07-01 07:27] LABS: INR 1.3 (0.8-1.1); PROTHROMBIN TIME PATIENT 15.5 SEC (11.7-14.0)
[2017-07-01 07:31] LABS: ALBUMIN 3.5 g/dL (3.4-5.0); ALBUMIN/GLOBULIN RATIO 1.3 (1.0-1.7); TOTAL BILIRUBIN 0.7 mg/dL (0.2-1.0); TOTAL PROTEIN 6.2 g/dL (6.4-8.2)
[2017-07-01 08:00] VITALS: BP 156/74
== END 2017-07-01 08:01 | disposition home or self-care (01) ==
LOC: ER 05:40
DX: K91.840 Postprocedural hemorrhage of a digestive system organ or structure following a digestive system procedure (principal); E78.5 Hyperlipidemia, unspecified; I48.91 Unspecified atrial fibrillation; I10 Essential (primary) hypertension; Z90.49 Acquired absence of other specified parts of digestive tract; Z88.0 Allergy status to penicillin
CPT/HCPCS: 36415; 80053; 85025; 85610; 85730; 99284

== ENCOUNTER 2017-07-01 10:47 | Inpatient (IN) | payer MEDICARE, OTHER ==
[~2017-07-01] VITALS: Ht 182.9 cm; Wt 81.6 kg
--- NOTE | 2017-07-01 12:36 | PHYS DOC ---
Past Medical History Past Medical History: A-Fib, High Cholesterol, Hypertension, Prostatitis Additional Past Medical Histor: urinary retention, ENLARGED PROSTATE Past Surgical History: Tonsillectomy, TURP, Other Additional Past Surgical Histo: tumor removal R shoulder Alcohol Use: Occasionally Drug Use: None Adult General Chief Complaint Chief Complaint: DENTAL PROBLEM [facility] HPI Patient is a 87 year old male whose right first upper molar was removed by his dentist 13 days ago. The patient had an episode of bleeding about a week ago that subsequently resolved. The patient came in earlier this morning and episode of bleeding that resolved after a quick clot was applied. The patient was released home and had a subsequent episode of bleeding which caused his to return to the emergency department. The patient's hemoglobin is stable today from his previous over the past few months at 12. The patient has some mild oozing from the wound but very limited bleeding at this time. The patient is describe a large amount of bleeding at home with approximately 200 mL blood loss since his last ED visit. Review of Systems Review of Systems Constitutional: Denies fever or chills [] Eyes: Denies change in visual acuity, redness, or eye pain [] HENT: Denies nasal congestion or sore throat. Bleeding from tooth extraction site.[] Respiratory: Denies cough or shortness of breath [] Cardiovascular: No additional information not addressed in HPI [] GI: Denies abdominal pain, nausea, vomiting, bloody stools or diarrhea [] : Denies dysuria or hematuria [] Musculoskeletal: Denies back pain or joint pain [] Integument: Denies rash or skin lesions [] Neurologic: Denies headache, focal weakness or sensory changes [] Endocrine: Denies polyuria or polydipsia [] Allergies Allergies Allergies Coded Allergies Type Severity Reaction Last Updated Verified Penicillins Allergy Intermediate HIVES 05/23/17 No Physical Exam Physical Exam Constitutional: Well developed, well nourished, no acute distress, non-toxic appearance. [] HENT: Normocephalic, atraumatic, bilateral external ears normal, oropharynx moist, no oral exudates, nose normal. Extraction site from right first upper molar extraction with that is hemostatic with gauze [address][] Eyes: PERRLA, EOMI, conjunctiva normal, no discharge. [] Neck: Normal range of motion, no tenderness, supple, no stridor. [] Cardiovascular:Heart rate regular rhythm, no murmur [] Lungs & Thorax: Bilateral breath sounds clear to auscultation [] Abdomen: Bowel sounds normal, soft, no tenderness, no masses, no pulsatile masses. [] Skin: Warm, dry, no erythema, no rash. [] Back: No tenderness, no CVA tenderness. [] Extremities: No tenderness, no cyanosis, no clubbing, ROM intact, no edema. [] Neurologic: Alert and oriented X 3, normal motor function, normal sensory function, no focal deficits noted. [] Psychologic: Affect normal, judgement normal, mood normal. [] Current Patient Data Vital Signs Vital Signs Date Time Temp Pulse Resp B/P (MAP) Pulse Ox O2 Delivery O2 Flow Rate FiO2 07/01/17 11:05 97.9 85 18 155/94 (114) 99 Room Air 97.9 EKG EKG [] Radiology/Procedures Radiology/Procedures [] Course & Med Decision Making Course & Med Decision Making Pertinent Labs and Imaging studies reviewed. (See chart for details) I discussed patient's case with at 11:58 am. She agreed to accept the patient onto her service as long as Dr. Billingsley the oral surgeon was willing to consult on his case. I discussed the patient's case with Dr. Billingsley who agreed to see the patient in consult at 12:13 pm.[] Dragon Disclaimer Dragon Disclaimer This electronic medical record was generated, in whole or in part, using a voice recognition dictation system. Departure Departure Impression: Primary Impression: Postprocedural hemorrhage due to complication of oral surgery Additional Impression: Anticoagulant effect Referrals: ARPAN ANDERSON Jr, MD (PCP) Problem Qualifiers VINNIE HAYNES MD Jul 01, 2017 12:36
[2017-07-01] MEDS ORDERED: ACETAMINOPHEN 325 MG TABLET. PO PRN (12:45)
[2017-07-01] MEDS ORDERED: ONDANSETRON PF 4 MG/2 ML VIAL. IV PRN ×2 (12:45→14:15)
[2017-07-01 13:27] VITALS: BP 155/56
[2017-07-01] MEDS ORDERED: HYDROcodone/APAP 5/325MG 1 TAB TABLET PO PRN (14:15)
--- NOTE | 2017-07-01 14:38 | PDOC1 ---
History and Physical Date of Admission Date of Admission DATE: 07/01/17 TIME: 14:34 Identification/Chief Complaint Chief Complaint bleeding from dental extraction site Problems: Source Source: Caregiver, Chart review, Patient History of Present Illness History of Present Illness 87 y.o male who had a recent dental extraction by oral surgeon 13 days ago, comes thru ER bec of bleeding from that site, He is on eliquis x 1 yr now for atrial fib, Unfortuntaely his eliquis was not held prior to his dental procedure,. Hgb ok, VS ok but bleeding continues despite packing thru mouth Admitted as elderly could also not manage this issue at home Admit OBS Pt actually wants to go home Past Medical History Cardiovascular: AFIB, HTN Past Surgical History Past Surgical History: Other (recent dental extraction) Family History Family History: Hypertension Social History Smoke: No ALCOHOL: none Drugs: None Current Problem List Problem List Problems Medical Problems: (1) Anticoagulant effect Status: Acute (2) Postprocedural hemorrhage due to complication of oral surgery Status: Acute Problems: Current Medications Current Medications Current Medications Ondansetron HCl (Zofran) 4 mg PRN Q8HRS PRN IV NAUSEA/VOMITING; Start 07/01/17 at 12:45; Stop 07/01/17 at 14:03; Status DC Acetaminophen (Tylenol) 650 mg PRN Q4HRS PRN PO FEVER; Start 07/01/17 at 12:45 ; Stop 07/02/17 at 12:44 Ondansetron HCl (Zofran) 4 mg PRN Q6HRS PRN IV NAUSEA/VOMITING; Start 07/01/17 at 14:15; Stop 07/02/17 at 14:14 Donepezil HCl (Aricept) 5 mg DAILY PO ; Start 07/01/17 at 14:30 Acetaminophen/ Hydrocodone Bitart (Lortab 5/325) 1 tab PRN Q4HRS PRN PO PAIN MILD TO MOD; Start 07/01/17 at 14:15 Simvastatin (Zocor) 10 mg HS PO ; Start 07/01/17 at 21:00 Tamsulosin HCl (Flomax) 0.4 mg DAILY PO ; Start 07/01/17 at 14:30 Lisinopril (Prinivil) 20 mg DAILY PO ; Start 07/01/17 at 14:30 Active Scripts Active Tamsulosin Hcl 0.4 Mg Cap.er.24h 0.4 Mg PO DAILY 30 Days Reported Hydrocodone-Apap 5-325 (Hydrocodone Bit/Acetaminophen) 1 Each Tablet 1 Tab PO PRN Q4HRS PRN Donepezil Hcl 5 Mg Tablet 1 Tab PO DAILY Quinapril Hcl 20 Mg Tablet 20 Mg PO DAILY Simvastatin 10 Mg Tablet 10 Mg PO HS Eliquis (Apixaban) 5 Mg Tablet 5 Mg PO BID Allergies Allergies: Coded Allergies: Penicillins (Unverified Allergy, Intermediate, HIVES, 05/23/17) ROS Review of System neg all esle reviewed Physical Exam General: Alert, Oriented X3, Cooperative, No acute distress HEENT: Other (packing inside with blood oozing from dental site) Lungs: Clear to auscultation Heart: S1S2 Cardiovascular: S1 Abdomen: Normal bowel sounds, Soft, No tenderness, No hepatosplenomegaly, No masses Male Genitals Exam: normal genitalia, normal prostate Rectal Exam: not examined PELVIC: Nml ext genitalia, Nml ext vulva, Nml ext vagina, Nml ext cervic Extremities: No clubbing, No cyanosis, No edema, Normal pulses, No tenderness/ swelling Skin: No rashes, No breakdown, No significant lesion Neuro: Normal gait, Normal speech, Strength at 5/5 X4 ext, Normal tone, Sensation intact, Cranial nerves 3-12 NL, Reflexes 2+ Psych/Mental Status: Mental status NL, Mood NL Vitals Vitals Vital Signs Date Time Temp Pulse Resp B/P (MAP) Pulse Ox O2 Delivery O2 Flow Rate FiO2 07/01/17 13:27 60 16 155/56 (89) 99 Room Air 07/01/17 11:05 97.9 97.9 VTE Prophylaxis Ordered VTE Prophylaxis Devices: Contraindicated VTE Pharmacological Prophylaxi: Contraindicated Assessment/Plan Assessment/Plan 1. Bleeding from post dental extraiction site 2. Chronci atrial fib on Eliquis 3, HTN, controlled PLAN: OBS Pressure to bleeding site Re consult his surgeon Dr Alvarez re this post procedure complication Unfortuately no reversal for eliquis IVF since will have poor pO If bleeding slows down tonight may have gI sift diet Dw and RN CHARLIE VELASQUEZ MD Jul 01, 2017 14:38
[2017-07-01 15:00] VITALS: BP 161/78
[2017-07-01] MEDS ORDERED: IV 1/2 NORMAL SALINE 1,000 ML IV ONE (15:00)
[2017-07-01] MEDS: DONEPEZIL HCL 5 MG TABLET. PO SCH (15:43)
[2017-07-01] MEDS: TAMSULOSIN 0.4 MG CAP.ER.24H. PO SCH (15:45)
[2017-07-01] MEDS: LISINOPRIL 20 MG TABLET PO SCH (15:45)
[2017-07-01 19:00] VITALS: BP 137/78
--- NOTE | 2017-07-01 20:48 | CONS ---
DATE OF CONSULTATION: 07/01/2017 REASON FOR CONSULTATION: Consult in regards to bleeding, status post dental extraction, approximately 13 days ago. EXAM AT BEDSIDE: The patient had multiple semi-bloody gauze in a container. Exam revealed gauze in the mouth. Minimal amount of oozing from extraction to site #3. No gross edema. Appears to be a clot in the socket. The patient is currently keeping it under control. ASSESSMENT AND PLAN: Bleeding, status post extraction to tooth #3. The patient is currently on Eliquis. We will continue pressure gauze packs through today and tonight, and call me if bleeding gets worse. We will follow patient in morning in the office, to see if we need to cauterize or do any other measures to control the bleeding. JORGE MORILLO DDS DR: Stephany JOB#: [id number] / [id number]
[2017-07-01] MEDS ORDERED: SIMVASTATIN 10 MG TABLET PO SCH (21:00)
[2017-07-01 23:00] VITALS: BP 149/93
[2017-07-02 05:11] LABS: BASO % 1 % (0-3); EOS % 3 % (0-3); HEMATOCRIT 35.2 % (39.0-53.0); HEMOGLOBIN 11.8 g/dL (13.0-17.5); LYMPH # 1.5 x10^3/uL (1.0-4.8); LYMPH % 32 % (24-48); MEAN CORPUSCULAR HEMOGLOBIN 28 pg (25-35); MEAN CORPUSCULAR HGB CONC 34 g/dL (31-37); MEAN CORPUSCULAR VOLUME 82 fL (79-100); MONO % 5 % (0-9); NEUT % 59 % (31-73); PLATELET COUNT 107 x10^3/uL (140-400); RED BLOOD COUNT 4.28 x10^6/uL (4.30-5.70); RED CELL DISTRIBUTION WIDTH 13.3 % (11.5-14.5); WHITE BLOOD COUNT 4.6 x10^3/uL (4.0-11.0)
[2017-07-02 05:49] LABS: ALBUMIN 3.1 g/dL (3.4-5.0); ALBUMIN/GLOBULIN RATIO 1.2 (1.0-1.7); CALCIUM 8.2 mg/dL (8.5-10.1); CREATININE 0.9 mg/dL (0.7-1.3); POTASSIUM 3.3 mmol/L (3.5-5.1); TOTAL BILIRUBIN 0.7 mg/dL (0.2-1.0); TOTAL PROTEIN 5.6 g/dL (6.4-8.2)
[2017-07-02 07:00] VITALS: BP 140/74
[2017-07-02] MEDS: TAMSULOSIN 0.4 MG CAP.ER.24H. PO SCH (09:10)
[2017-07-02] MEDS: LISINOPRIL 20 MG TABLET PO SCH (09:10)
[2017-07-02] MEDS: DONEPEZIL HCL 5 MG TABLET. PO SCH (09:10)
[2017-07-02] MEDS ORDERED: POTASSIUM CHLORIDE 20 MEQ TABLET.ER. PO ONE (09:30)
[2017-07-02 11:00] VITALS: BP 125/77
[2017-07-02 15:00] VITALS: BP 152/68
--- NOTE | 2017-07-02 15:08 | PDOC3 ---
Discharge Summary [facility] Date of Admission: Jul 01, 2017 Discharge Date: Jul 02, 2017 Admitting Diagnosis 1. Bleeding from post dental extraiction site 2. Chronci atrial fib on Eliquis 3, HTN, controlled dementia, mild Problems: Final Diagnosis CONSULTS dr. Lai dentist Brief Hospital Course Mr. Solorio is a 87 old M, mild dementia, on eliquis for afib, got a tooth removed 13ds ago by a dentist, eliquis not held. He came to ER for tooth bleeding, stable overnight. see dr. Lai today, suture removed. hold eliquis till see his PCP this week. dc time 35min General: Alert, Oriented X3, Cooperative, No acute distress HEENT: Other (packing inside with NO blood oozing from dental site) Lungs: Clear to auscultation Heart: S1S2 Cardiovascular: S1 Abdomen: Normal bowel sounds, Soft, No tenderness, No hepatosplenomegaly, No masses Male Genitals Exam: normal genitalia, normal prostate Rectal Exam: not examined PELVIC: Nml ext genitalia, Nml ext vulva, Nml ext vagina, Nml ext cervic Extremities: No clubbing, No cyanosis, No edema, Normal pulses, No tenderness/ swelling Skin: No rashes, No breakdown, No significant lesion Neuro: Normal gait, Normal speech, Strength at 5/5 X4 ext, Normal tone, Sensation intact, Cranial nerves 3-12 NL, Reflexes 2+ Psych/Mental Status: Mental status NL, Mood NL Problems: Disposition home CONDITION AT DISCHARGE: Improved Diet regular Scheduled Apixaban (Eliquis), 5 MG PO BID, (Reported) Donepezil Hcl (Donepezil Hcl), 1 TAB PO DAILY, (Reported) Quinapril Hcl (Quinapril Hcl), 20 MG PO DAILY, (Reported) Simvastatin (Simvastatin), 10 MG PO HS, (Reported) Tamsulosin Hcl (Tamsulosin Hcl), 0.4 MG PO DAILY Scheduled PRN Hydrocodone Bit/Acetaminophen (Hydrocodone-Apap 5-325 ), 1 TAB PO PRN Q4HRS PRN for PAIN, (Reported) Follow Up pcp CHENTE Rubio MD Jul 02, 2017 15:08
--- NOTE | 2017-07-03 01:29 | CONS ---
DATE OF CONSULTATION: 07/02/2017 REQUESTING PHYSICIAN: Dr. Vida Cardozo. REASON FOR CONSULTATION: Bleeding after a dental extraction site in a patient on Eliquis. HISTORY OF PRESENT ILLNESS: The patient is an 87-year-old gentleman who had a dental extraction by his oral surgeon about 13 days ago. He came into the Emergency Room because of bleeding from that site. He has been on Eliquis for approximately 1 year for atrial fibrillation. His Eliquis was not held prior to his dental procedure. Bleeding was continuing despite packing in his mouth. His could not manage him at home and hence he was brought in to the hospital and subsequently admitted. His hemoglobin on 07/02/2017 was noted to be 11.8 with a platelet count of 107. Review of the old records indicates that his hemoglobin was normal on 02/10/2017 at 15.3. In addition, his platelet count was also normal at 160 on 02/10/2017. I was asked to see the patient because of coagulopathy. He denies hematemesis, melena, hematochezia. No hemoptysis or hematuria. No nosebleeds. PAST MEDICAL HISTORY: Atrial fibrillation, hypertension. FAMILY HISTORY: Positive for hypertension. SOCIAL HISTORY: No smoking or alcohol abuse. REVIEW OF SYSTEMS: A 12-point review of system was performed. Pertinent positives are mentioned in the history of present illness. Rest of the system review is negative. PHYSICAL EXAMINATION: GENERAL APPEARANCE: The patient is an 87-year-old gentleman, who is in no acute cardiorespiratory distress. VITAL SIGNS: Blood pressure 152/68, temperature 97.9. The patient was examined at about 12:30 p.m. on 07/02/2017. HEENT: Atraumatic, normocephalic. Eyes: No icterus. Oral exam, no evidence of bleeding. NECK: Supple. CHEST: Bilaterally symmetrical. No crepitations or rhonchi heard. HEART: S1, S2 normal. ABDOMEN: Soft, nontender. CENTRAL NERVOUS SYSTEM: No focal deficits. LYMPHATICS: No lymphadenopathy. SKIN: No rashes. PSYCHOLOGIC: Mood and affect are appropriate. LABORATORY DATA: From 07/02/2017, WBC 4.6, hemoglobin 11.8, platelet count 107. IMPRESSION AND PLAN: 1. Coagulopathy due to Eliquis leading to postoperative bleeding after dental extraction by oral surgeons. The patient apparently has held Eliquis for the last 2 days. Bleeding has now completely stopped. I have recommended follow up with his dentist. He has an appointment. There is no reversing agent available for Eliquis and in addition, his bleeding has stopped and hence I would not administer FFP or vitamin K. If he does not have any further bleeding, then Eliquis can be resumed. He will follow up with his primary care physician for further advice. I discussed in detail with the patient. He understands and agrees with the plan. 2. Anemia due to recent blood loss. His previous hemoglobin in 01/2017 was normal. 3. Thrombocytopenia, reactive. His platelet count was normal in 01/2017 and it was 107 on 07/02/2017 consistent with reactive process. I would expect this to improve. I have recommended follow up with his primary care physician and reconsult me if needed. ZINA AMOR MD DR: ARLENE/rivka JOB#: [id number] / [id number] YESENIA
== END 2017-07-02 15:30 | disposition home or self-care (01) | DRG 920 ==
LOC: ER 10:47 → 4 NORTH 11:46
PROVIDERS: ADMIT Internal Medicine; ATTEND Internal Medicine
DX: K91.840 Postprocedural hemorrhage of a digestive system organ or structure following a digestive system procedure (principal); D68.9 Coagulation defect, unspecified; F03.90 Unspecified dementia, unspecified severity, without behavioral disturbance, psychotic disturbance, mood disturbance, and anxiety; D69.6 Thrombocytopenia, unspecified; D64.9 Anemia, unspecified; E78.00 Pure hypercholesterolemia, unspecified; I10 Essential (primary) hypertension; I48.91 Unspecified atrial fibrillation; N40.1 Benign prostatic hyperplasia with lower urinary tract symptoms; Z82.49 Family history of ischemic heart disease and other diseases of the circulatory system; Z88.0 Allergy status to penicillin; T50.995A Adverse effect of other drugs, medicaments and biological substances, initial encounter
CPT/HCPCS: 36415; 80053; 85025; 85610; 85730; 99284; 99285-25

== ENCOUNTER 2017-09-07 20:20 | Emergency (ER) | payer MEDICARE, OTHER ==
[~2017-09-07] VITALS: Ht 185.4 cm; Wt 83.9 kg
[2017-09-07 20:55] VITALS: BP 173/96
--- NOTE | 2017-09-07 21:15 | PHYS DOC ---
Past Medical History Past Medical History: A-Fib, High Cholesterol, Hypertension, Prostatitis Additional Past Medical Histor: urinary retention, ENLARGED PROSTATE Past Surgical History: Tonsillectomy, TURP, Other Additional Past Surgical Histo: tumor removal R shoulder Alcohol Use: Occasionally Drug Use: None Adult General Chief Complaint Chief Complaint: DENTAL PROBLEM HPI HPI Patient is a 87 year old male with history of hypertension, high cholesterol, A. fib and on blood thinners unknown name who presents today complaining of a piece of string stuck on his front tooth this evening while he was eating a snack. Patient cannot remember what snack he was eating. Review of Systems Review of Systems Constitutional: Denies fever or chills [] Eyes: Denies change in visual acuity, redness, or eye pain [] HENT: piece of string stuck on his front teeth Musculoskeletal: Denies back pain or joint pain [] Integument: Denies rash or skin lesions [] Neurologic: Denies headache, focal weakness or sensory changes [] All other systems were reviewed and found to be within normal limits, except as documented in this note. Allergies Allergies Allergies Coded Allergies Type Severity Reaction Last Updated Verified Penicillins Allergy Intermediate HIVES 05/23/17 No Physical Exam Physical Exam Constitutional: Well developed, well nourished, no acute distress, non-toxic appearance. [] HENT: Normocephalic, atraumatic, bilateral external ears normal, oropharynx moist, no oral exudates, nose normal. [] I piece of string appearing round object around tooth #9, which was removed successfully with the forceps by me Skin: Warm, dry, no erythema, no rash. [] Back: No tenderness, no CVA tenderness. [] Extremities: No tenderness, no cyanosis, no clubbing, ROM intact, no edema. [] Neurologic: Alert and oriented X 3, normal motor function, normal sensory function, no focal deficits noted. [] Psychologic: Affect normal, judgement normal, mood normal. [] Current Patient Data Vital Signs Vital Signs Date Time Temp Pulse Resp B/P (MAP) Pulse Ox O2 Delivery O2 Flow Rate FiO2 09/07/17 20:55 98.1 81 18 98 Room Air 98.1 EKG EKG [] Radiology/Procedures Radiology/Procedures [] Course & Med Decision Making Course & Med Decision Making Pertinent Labs and Imaging studies reviewed. (See chart for details) Patient presents complaining of a piece of string stuck on his front tooth from a snake he was having earlier. The piece of string was removed successfully by me with forceps. No bleeding is noted. Instructed to gargle some saltwater twice a day. Instructed to follow-up with his own dentist in 1-2 weeks. Dragon Disclaimer Dragon Disclaimer This electronic medical record was generated, in whole or in part, using a voice recognition dictation system. Departure Departure Impression: Primary Impression: Oral foreign body Disposition: HOME, SELF-CARE Condition: STABLE Referrals: ARPAN ANDERSON Jr, MD (PCP) followup with your doctor and dentist next week Patient Instructions: Foreign Body-Brief Additional Instructions: We removed a piece of string from your front tooth. You can gargle warm salty water twice a day. Follow-up with your dentist and primary care doctor in 1-2 weeks. Problem Qualifiers Primary Impression: Oral foreign body Encounter type: initial encounter Qualified Codes: T18.0XXA - Foreign body in mouth, initial encounter GUILLERMO NIETO APRN Sep 07, 2017 21:15
== END 2017-09-07 21:23 | disposition home or self-care (01) ==
LOC: ER 20:20
DX: T18.0XXA Foreign body in mouth, initial encounter (principal); I48.91 Unspecified atrial fibrillation; E78.00 Pure hypercholesterolemia, unspecified; I10 Essential (primary) hypertension; Z88.0 Allergy status to penicillin; X58.XXXA Exposure to other specified factors, initial encounter; Y93.89 Activity, other specified; Y92.89 Other specified places as the place of occurrence of the external cause; Y99.8 Other external cause status
CPT/HCPCS: 99284

== ENCOUNTER 2018-06-10 21:35 | Emergency (ER) | payer MEDICARE, OTHER ==
[~2018-06-10] VITALS: Ht 182.9 cm; Wt 86.2 kg
--- NOTE | 2018-06-10 22:15 | PHYS DOC ---
Past Medical History Past Medical History: A-Fib, High Cholesterol, Hypertension, Prostatitis Additional Past Medical Histor: urinary retention, ENLARGED PROSTATE Past Surgical History: Tonsillectomy, TURP, Other Additional Past Surgical Histo: tumor removal R shoulder Alcohol Use: Occasionally Drug Use: None Adult General Chief Complaint Chief Complaint: TOE PROBLEM HPI HPI Patient is a 88 year old male who presents with right toe pain. Sudden onset, nonradiating. He stood up and stubbed his toe on the floor. He states his toe nail is too long. Review of Systems Review of Systems He denies any fall, loss of consciousness, complaints, breathing complaints, headache All other systems were reviewed and found to be within normal limits, except as documented in this note. Family History Family History Noncontributory Allergies Allergies Allergies Coded Allergies Type Severity Reaction Last Updated Verified Penicillins Allergy Intermediate HIVES 05/23/17 No Physical Exam Physical Exam GENERAL: Awake, alert, no acute distress HEAD/EYES: Normocephalic, EOMI ENT Airway patent, mucous membranes moist NECK: Supple, no meningismus, no swelling RESP: No respiratory distress, symmetrical expansion CV: Normal peripheral perfusion ABD/GI: Non distended SKIN: Warm, dry EXT: The right great toe has a very long toenail, there a subungual hematoma, evacuated while performing exam, tenderness at distal phalanx, NV intact NEURO: Normal motor observed PSYCH: Cooperative, appropriate affect Current Patient Data Vital Signs Vital Signs Date Time Temp Pulse Resp B/P (MAP) Pulse Ox O2 Delivery O2 Flow Rate FiO2 06/10/18 21:40 97.8 74 18 160/85 (110) 98 Room Air 97.8 EKG EKG [] Radiology/Procedures Radiology/Procedures [] Course & Med Decision Making Course & Med Decision Making Pertinent Labs and Imaging studies reviewed. (See chart for details) Differential includes but not limited to: Nailbed injury, distal fracture, future loss of toenail (discussed this with patient) Three-view x-ray of the right toe interpreted by me reveals no acute displaced fracture or dislocation. I did evacuate a hematoma underneath his nail. He states that he does not have much pain or pressure in that toe currently. Having him follow up with podiatry as an outpatient. Stable for discharge. Dragon Disclaimer Dragon Disclaimer This electronic medical record was generated, in whole or in part, using a voice recognition dictation system. Departure Departure Impression: Primary Impression: Nail avulsion, toe Disposition: 01 HOME, SELF-CARE Condition: STABLE Referrals: ARPAN ANDERSON Jr, MD (PCP) ESTEFANI TEE DO Jun 10, 2018 22:15
--- NOTE | 2018-06-10 23:25 | RAD ---
Indication: Right great toe pain after injury. TECHNIQUE: 3 views of the right toe COMPARISON: None FINDINGS/ impression: No acute fracture or dislocation. No soft tissue abnormality. No significant arthritic process. The toenail is lifted up Electronically signed by: Aron Valdes DO (06/10/2018 11:22 PM) [facility]
[2018-06-10 23:40] VITALS: BP 158/84
== END 2018-06-10 23:40 | disposition home or self-care (01) ==
LOC: ER 21:35
DX: S91.201A Unspecified open wound of right great toe with damage to nail, initial encounter (principal); E78.00 Pure hypercholesterolemia, unspecified; I10 Essential (primary) hypertension; I48.91 Unspecified atrial fibrillation; Z88.0 Allergy status to penicillin; W22.8XXA Striking against or struck by other objects, initial encounter; Y93.89 Activity, other specified; Y92.89 Other specified places as the place of occurrence of the external cause; Y99.8 Other external cause status
CPT/HCPCS: 11740; 73660; 99284-25

== ENCOUNTER 2018-10-11 11:51 | Inpatient (IN) | payer MEDICARE, OTHER ==
[~2018-10-11] VITALS: Ht 185.4 cm; Wt 75.9 kg
[~2018-10-11 11:51] MED LIST changes: -HYDR-2758 PO; +HYDR-2761 PO
--- NOTE | 2018-10-11 12:47 | EKG ---
[facility] [address] [place] [address] Test Date: 2018-10-11 Test Time: 12:34:32 Pat Name: ZACHARY JOSPEH Department: Room: Gender: M Filling Hand: : 1930 Requested By: GUILLERMO NIETO Order Number: [id number] Reading MD: Tre Carroll Measurements Intervals [place] Rate: 108 P: [place]: QRS: 24 QRSD: 82 T: 45 QT: 332 QTc: 449 Interpretive Statements ATRIAL FIBRILLATION LOW LIMB LEAD VOLTAGE Electronically Signed On 10-15-2018 9:39:37 [employer]GAL [employer]ITY [employer] by Tre Carroll
[2018-10-11 12:48] LABS: BASO % 0 % (0-3); EOS % 1 % (0-3); HEMATOCRIT 42.9 % (39.0-53.0); HEMOGLOBIN 14.5 g/dL (13.0-17.5); LYMPH # 0.8 x10^3/uL (1.0-4.8); LYMPH % 14 % (24-48); MEAN CORPUSCULAR HEMOGLOBIN 28 pg (25-35); MEAN CORPUSCULAR HGB CONC 34 g/dL (31-37); MEAN CORPUSCULAR VOLUME 82 fL (79-100); MONO # 0.2 x10^3/uL (0.0-1.1); MONO % 3 % (0-9); NEUT # 4.8 x10^3uL (1.8-7.7); NEUT % 82 % (31-73); PLATELET COUNT 160 x10^3/uL (140-400); RED BLOOD COUNT 5.23 x10^6/uL (4.30-5.70); RED CELL DISTRIBUTION WIDTH 13.3 % (11.5-14.5); WHITE BLOOD COUNT 5.9 x10^3/uL (4.0-11.0)
[2018-10-11 12:58] LABS: PROTHROMBIN TIME PATIENT 19.2 SEC (11.7-14.0)
--- NOTE | 2018-10-11 13:08 | RAD ---
EXAM: Chest, single view. HISTORY: Altered mental status. COMPARISON: None. FINDINGS: A frontal view of the chest is obtained. There is no infiltrate, pleural effusion or pneumothorax. The heart is normal in size for portable technique. IMPRESSION: No acute pulmonary finding. Electronically signed by: Keira Parker MD (10/11/2018 1:04 PM) [place] [id number]
[2018-10-11 13:09] LABS: CALCIUM 9.1 mg/dL (8.5-10.1); CREATININE 1.1 mg/dL (0.7-1.3); GFR 63.3; POTASSIUM 3.7 mmol/L (3.5-5.1)
[2018-10-11 13:13] LABS: ALBUMIN 3.6 g/dL (3.4-5.0); ALBUMIN/GLOBULIN RATIO 1.1 (1.0-1.7); MAGNESIUM 1.9 mg/dL (1.8-2.4); TOTAL BILIRUBIN 1.2 mg/dL (0.2-1.0); TOTAL PROTEIN 6.9 g/dL (6.4-8.2)
--- NOTE | 2018-10-11 13:37 | RAD ---
EXAM: Head CT without contrast. HISTORY: Altered mental status. TECHNIQUE: Computed tomographic images of the head were obtained without contrast. *One or more of the following individualized dose reduction techniques were utilized for this examination: 1. Automated exposure control. 2. Adjustment of the mA and/or kV according to patient size. 3. Use of iterative reconstruction technique. COMPARISON: None. FINDINGS: There is increased extra-axial space along the cerebral convexities, likely due to the combination of cerebral atrophy and chronic bilateral subdural hematomas. There is no acute or subacute subdural hematoma. There is no mass effect or midline shift. There is no hydrocephalus. There are areas of decreased attenuation within the cerebral white matter, nonspecific and likely related to chronic small vessel disease. There are tiny right maxillary sinus mucous retention cyst. The mastoid air cells are unremarkable. No suspicious calvarial lesion is seen. IMPRESSION: 1. No acute intracranial finding. Note is made that MRI is more sensitive for acute infarction. 2. Scattered areas of hypodensity within the cerebral white matter, likely due to chronic small vessel disease. 3. Cerebral atrophy with increased extra-axial space. There is suspected superimposed small chronic bilateral subdural hematomas along the cerebral convexities. Electronically signed by: Keira Parker MD (10/11/2018 1:33 PM) [id number]
[2018-10-11] MEDS ORDERED: IV NORMAL SALINE 1000ML BAG 1,000 ML IV ONE (13:45)
--- NOTE | 2018-10-11 13:52 | PDOC1 ---
History and Physical Date of Admission Date of Admission DATE: 10/11/18 TIME: 13:46 Identification/Chief Complaint Chief Complaint FTT sxs Source Source: Caregiver, Chart review, Patient History of Present Illness History of Present Illness Very pleasant 88-year-old male who lives alone at home, recently lost his August 2018-they have been for many years. Brought in by concerned of the patient's nephew because of failure to thrive symptoms. He has lost 25 pounds significantly. There are no groceries or no food at home. He is not taking care of himself since recent passing of his . Hence admitted here. He does not want to go to assisted. We talked about his he cries to be at the emergency room. Labs are unremarkable with normal chest x- ray & normal vitals. Patient admitted because of legitimate concerns by the family. Clearly he is grieving but he is not taking care of himself alone at home. HX A. fib and hypertension by history but he does not recall his home meds hence we are calling his pharmacy at [facility] between [address] second end state HE is currently NSR Him and the family at bedside is unable to address to me his CODE STATUS-he is very emotional currently Past Medical History Cardiovascular: AFIB, HTN Past Surgical History Past Surgical History: Other Family History Family History: Hypertension Social History Smoke: No ALCOHOL: none Drugs: None Current Medications Current Medications Current Medications Sodium Chloride 1,000 ml @ 1,000 mls/hr 1X ONCE IV ; Start 10/11/18 at 13:45; Stop 10/11/18 at 14:44 Active Scripts Active Tamsulosin Hcl 0.4 Mg Cap.er.24h 0.4 Mg PO DAILY 30 Days Reported Hydrocodone-Apap 5-325 (Hydrocodone Bit/Acetaminophen) 1 Each Tablet 1 Tab PO PRN Q4HRS PRN Donepezil Hcl 5 Mg Tablet 1 Tab PO DAILY Quinapril Hcl 20 Mg Tablet 20 Mg PO DAILY Simvastatin 10 Mg Tablet 10 Mg PO HS Eliquis (Apixaban) 5 Mg Tablet 5 Mg PO BID Allergies Allergies: Coded Allergies: Penicillins (Unverified Allergy, Intermediate, HIVES, 05/23/17) ROS Review of System Limited, he is crying Otherwise, he has no complaints and he claims he "feels fine" Physical Exam General: Alert, Oriented X3, Cooperative, No acute distress HEENT: Atraumatic, PERRLA, EOMI Lungs: Clear to auscultation, Normal air movement Heart: S1S2, RRR, no thrills, no rubs, no gallops, no murmurs Cardiovascular: S1, S2 Abdomen: Normal bowel sounds, Soft, No tenderness, No hepatosplenomegaly, No masses Male Genitals Exam: normal genitalia, normal prostate Extremities: No clubbing, No cyanosis, No edema, Normal pulses, No tenderness/ swelling Skin: No rashes, No breakdown, No significant lesion Neuro: Normal gait, Normal speech, Strength at 5/5 X4 ext, Normal tone, Sensation intact, Cranial nerves 3-12 NL, Reflexes 2+ Psych/Mental Status: Mental status NL, Mood NL Vitals Vitals Vital Signs Date Time Temp Pulse Resp B/P (MAP) Pulse Ox O2 Delivery O2 Flow Rate FiO2 10/11/18 12:15 97.8 106 18 133/68 (89) 96 Room Air 97.8 Labs Labs Laboratory Tests Test 10/11/18 12:29 White Blood Count 5.9 x10^3/uL (4.0-11.0) Red Blood Count 5.23 x10^6/uL (4.30-5.70) Hemoglobin 14.5 g/dL (13.0-17.5) Hematocrit 42.9 % (39.0-53.0) Mean Corpuscular Volume 82 fL (79-100) Mean Corpuscular Hemoglobin 28 pg (25-35) Mean Corpuscular Hemoglobin Concent 34 g/dL (31-37) Red Cell Distribution Width 13.3 % (11.5-14.5) Platelet Count 160 x10^3/uL (140-400) Neutrophils (%) (Auto) 82 % (31-73) Lymphocytes (%) (Auto) 14 % (24-48) Monocytes (%) (Auto) 3 % (0-9) Eosinophils (%) (Auto) 1 % (0-3) Basophils (%) (Auto) 0 % (0-3) Neutrophils # (Auto) 4.8 x10^3uL (1.8-7.7) Lymphocytes # (Auto) 0.8 x10^3/uL (1.0-4.8) Monocytes # (Auto) 0.2 x10^3/uL (0.0-1.1) Eosinophils # (Auto) 0.0 x10^3/uL (0.0-0.7) Basophils # (Auto) 0.0 x10^3/uL (0.0-0.2) Prothrombin Time 19.2 SEC (11.7-14.0) Prothromb Time International Ratio 1.6 (0.8-1.1) Sodium Level 143 mmol/L (136-145) Potassium Level 3.7 mmol/L (3.5-5.1) Chloride Level 104 mmol/L (98-107) Carbon Dioxide Level 30 mmol/L (21-32) Anion Gap 9 (6-14) Blood Urea Nitrogen 14 mg/dL (8-26) Creatinine 1.1 mg/dL (0.7-1.3) Estimated GFR (Cockcroft-Gault) 63.3 BUN/Creatinine Ratio 13 (6-20) Glucose Level 142 mg/dL (70-99) Calcium Level 9.1 mg/dL (8.5-10.1) Magnesium Level 1.9 mg/dL (1.8-2.4) Total Bilirubin 1.2 mg/dL (0.2-1.0) Aspartate Amino Transf (AST/SGOT) 15 U/L (15-37) Alanine Aminotransferase (ALT/SGPT) 14 U/L (16-63) Alkaline Phosphatase 82 U/L (46-116) Troponin I Quantitative < 0.017 ng/mL (0.000-0.055) PU-Fvb-R-Type Natriuretic Peptide 1497 pg/mL (0-449) Total Protein 6.9 g/dL (6.4-8.2) Albumin 3.6 g/dL (3.4-5.0) Albumin/Globulin Ratio 1.1 (1.0-1.7) Thyroid Stimulating Hormone (TSH) 2.056 uIU/mL (0.358-3.74) Laboratory Tests Test 10/11/18 12:29 White Blood Count 5.9 x10^3/uL (4.0-11.0) Red Blood Count 5.23 x10^6/uL (4.30-5.70) Hemoglobin 14.5 g/dL (13.0-17.5) Hematocrit 42.9 % (39.0-53.0) Mean Corpuscular Volume 82 fL (79-100) Mean Corpuscular Hemoglobin 28 pg (25-35) Mean Corpuscular Hemoglobin Concent 34 g/dL (31-37) Red Cell Distribution Width 13.3 % (11.5-14.5) Platelet Count 160 x10^3/uL (140-400) Neutrophils (%) (Auto) 82 % (31-73) Lymphocytes (%) (Auto) 14 % (24-48) Monocytes (%) (Auto) 3 % (0-9) Eosinophils (%) (Auto) 1 % (0-3) Basophils (%) (Auto) 0 % (0-3) Neutrophils # (Auto) 4.8 x10^3uL (1.8-7.7) Lymphocytes # (Auto) 0.8 x10^3/uL (1.0-4.8) Monocytes # (Auto) 0.2 x10^3/uL (0.0-1.1) Eosinophils # (Auto) 0.0 x10^3/uL (0.0-0.7) Basophils # (Auto) 0.0 x10^3/uL (0.0-0.2) Prothrombin Time 19.2 SEC (11.7-14.0) Prothromb Time International Ratio 1.6 (0.8-1.1) Sodium Level 143 mmol/L (136-145) Potassium Level 3.7 mmol/L (3.5-5.1) Chloride Level 104 mmol/L (98-107) Carbon Dioxide Level 30 mmol/L (21-32) Anion Gap 9 (6-14) Blood Urea Nitrogen 14 mg/dL (8-26) Creatinine 1.1 mg/dL (0.7-1.3) Estimated GFR (Cockcroft-Gault) 63.3 BUN/Creatinine Ratio 13 (6-20) Glucose Level 142 mg/dL (70-99) Calcium Level 9.1 mg/dL (8.5-10.1) Magnesium Level 1.9 mg/dL (1.8-2.4) Total Bilirubin 1.2 mg/dL (0.2-1.0) Aspartate Amino Transf (AST/SGOT) 15 U/L (15-37) Alanine Aminotransferase (ALT/SGPT) 14 U/L (16-63) Alkaline Phosphatase 82 U/L (46-116) Troponin I Quantitative < 0.017 ng/mL (0.000-0.055) EH-Snf-G-Type Natriuretic Peptide 1497 pg/mL (0-449) Total Protein 6.9 g/dL (6.4-8.2) Albumin 3.6 g/dL (3.4-5.0) Albumin/Globulin Ratio 1.1 (1.0-1.7) Thyroid Stimulating Hormone (TSH) 2.056 uIU/mL (0.358-3.74) VTE Prophylaxis Ordered VTE Prophylaxis Devices: Yes VTE Pharmacological Prophylaxi: Yes Assessment/Plan Assessment/Plan Normal bereavement Hx hypertension and A. fib by history-NSR and BP controlled currently Failure to thrive symptoms Plan: PT OT, okay to resume home meds once we have called his pharmacy at [facility] [address] Fall risk Regular diet Seen at ER FUll code CHARLIE VELASQUEZ MD Oct 11, 2018 13:52
[2018-10-11 13:57] LABS: BILIRUBIN,URINE NEGATIVE (NEG); CLARITY,URINE CLEAR; COLOR,URINE YELLOW; NITRITE,URINE NEGATIVE (NEG); PH,URINE 6.5; PROTEIN,URINE NEGATIVE (NEG-TRACE)
[2018-10-11 13:58] LABS: BARBITURATES NEG (NEG); BENZODIAZEPINES NEG (NEG); CANNABINOIDS NEG (NEG); COCAINE NEG (NEG); METHADONE NEG (NEG); OPIATES POS (NEG); PHENCYCLIDINE NEG (NEG)
[2018-10-11 13:59] LABS: AMPHETAMINE/METHAMPHETAMINE NEG (NEG)
[2018-10-11] MEDS ORDERED: ALPRAZolam 0.25 MG TABLET PO PRN (14:00)
[2018-10-11] MEDS ORDERED: IBUPROFEN 400 MG TABLET. PO PRN (14:00)
[2018-10-11] MEDS ORDERED: ACETAMINOPHEN 500 MG TABLET PO PRN (14:00)
[2018-10-11] MEDS ORDERED: TEMAZEPAM 7.5 MG CAPSULE PO PRN (14:00)
[2018-10-11] MEDS ORDERED: MAG HYDROX/ALUMINUM HYD/SIMETH 30 ML ORAL.SUSP PO PRN (14:00)
[2018-10-11 14:13] LABS: HYALINE CASTS, URINE MODERATE /HPF; SQUAMOUS EPITHELIAL CELL,UR FEW /LPF
[2018-10-11 14:15] LABS: BACTERIA,URINE 0 /HPF (0-FEW)
--- NOTE | 2018-10-11 14:27 | PHYS DOC ---
Past Medical History Past Medical History: A-Fib, Dementia, High Cholesterol, Hypertension, Prostatitis Additional Past Medical Histor: urinary retention, ENLARGED PROSTATE Past Surgical History: Tonsillectomy, TURP, Other Additional Past Surgical Histo: tumor removal R shoulder; hernia; prostate Alcohol Use: Occasionally Drug Use: None Adult General Chief Complaint Chief Complaint: OTHER COMPLAINTS [facility] HPI Patient is a 88 year old male with history of hypertension, dementia, high cholesterol, who presents today with extended family members. They state patient lost his August 2018. They states patient has been depressed since then. They state he typically doesn't eat or drink unless somebody reminds him unfortunately he lives by himself. They state he is not taking care of himself. Patient has dementia and alert and oriented �2. He has no complaints. Review of Systems Review of Systems Constitutional:Inability to care for self. Denies fever or chills [] Eyes: Denies change in visual acuity, redness, or eye pain [] HENT: Denies nasal congestion or sore throat [] Respiratory: Denies cough or shortness of breath [] Cardiovascular: No additional information not addressed in HPI [] GI: Denies abdominal pain, nausea, vomiting, bloody stools or diarrhea [] : Denies dysuria or hematuria [] Musculoskeletal: Denies back pain or joint pain [] Integument: Denies rash or skin lesions [] Neurologic: Denies headache, focal weakness or sensory changes [] All other systems were reviewed and found to be within normal limits, except as documented in this note. Allergies Allergies Allergies Coded Allergies Type Severity Reaction Last Updated Verified Penicillins Allergy Intermediate HIVES 05/23/17 No Physical Exam Physical Exam Constitutional: Well developed, well nourished, no acute distress, non-toxic appearance. [] HENT: Normocephalic, atraumatic, bilateral external ears normal, oropharynx moist, no oral exudates, nose normal. [] Eyes: PERRLA, EOMI, conjunctiva normal, no discharge. [] Neck: Normal range of motion, no tenderness, supple, no stridor. [] Cardiovascular:Heart rate regular rhythm, no murmur [] Lungs & Thorax: Bilateral breath sounds clear to auscultation [] Abdomen: Bowel sounds normal, soft, no tenderness, no masses, no pulsatile masses. [] Skin: Warm, dry, no erythema, no rash. [] Back: No tenderness, no CVA tenderness. [] Extremities: No tenderness, no cyanosis, no clubbing, ROM intact, no edema. [] Neurologic: Alert and oriented X 2, normal motor function, normal sensory function, no focal deficits noted. Cranial nerves II through XII intact Psychologic: Affect normal, judgement normal, mood normal. [] Current Patient Data Vital Signs Vital Signs Date Time Temp Pulse Resp B/P (MAP) Pulse Ox O2 Delivery O2 Flow Rate FiO2 10/11/18 13:17 90 16 134/73 (93) 99 10/11/18 12:47 Room Air 10/11/18 12:15 97.8 97.8 Lab Values Laboratory Tests Test 10/11/18 12:29 White Blood Count 5.9 x10^3/uL (4.0-11.0) Red Blood Count 5.23 x10^6/uL (4.30-5.70) Hemoglobin 14.5 g/dL (13.0-17.5) Hematocrit 42.9 % (39.0-53.0) Mean Corpuscular Volume 82 fL (79-100) Mean Corpuscular Hemoglobin 28 pg (25-35) Mean Corpuscular Hemoglobin Concent 34 g/dL (31-37) Red Cell Distribution Width 13.3 % (11.5-14.5) Platelet Count 160 x10^3/uL (140-400) Neutrophils (%) (Auto) 82 % (31-73) H Lymphocytes (%) (Auto) 14 % (24-48) L Monocytes (%) (Auto) 3 % (0-9) Eosinophils (%) (Auto) 1 % (0-3) Basophils (%) (Auto) 0 % (0-3) Neutrophils # (Auto) 4.8 x10^3uL (1.8-7.7) Lymphocytes # (Auto) 0.8 x10^3/uL (1.0-4.8) L Monocytes # (Auto) 0.2 x10^3/uL (0.0-1.1) Eosinophils # (Auto) 0.0 x10^3/uL (0.0-0.7) Basophils # (Auto) 0.0 x10^3/uL (0.0-0.2) Prothrombin Time 19.2 SEC (11.7-14.0) H Prothrombin Time INR 1.6 (0.8-1.1) H Sodium Level 143 mmol/L (136-145) Potassium Level 3.7 mmol/L (3.5-5.1) Chloride Level 104 mmol/L (98-107) Carbon Dioxide Level 30 mmol/L (21-32) Anion Gap 9 (6-14) Blood Urea Nitrogen 14 mg/dL (8-26) Creatinine 1.1 mg/dL (0.7-1.3) Estimated GFR (Cockcroft-Gault) 63.3 BUN/Creatinine Ratio 13 (6-20) Glucose Level 142 mg/dL (70-99) H Calcium Level 9.1 mg/dL (8.5-10.1) Magnesium Level 1.9 mg/dL (1.8-2.4) Total Bilirubin 1.2 mg/dL (0.2-1.0) H Aspartate Amino Transferase (AST) 15 U/L (15-37) Alanine Aminotransferase (ALT) 14 U/L (16-63) L Alkaline Phosphatase 82 U/L (46-116) Troponin I Quantitative < 0.017 ng/mL (0.000-0.055) ET-Amd-N-Type Natriuretic Peptide 1497 pg/mL (0-449) H Total Protein 6.9 g/dL (6.4-8.2) Albumin 3.6 g/dL (3.4-5.0) Albumin/Globulin Ratio 1.1 (1.0-1.7) Thyroid Stimulating Hormone (TSH) 2.056 uIU/mL (0.358-3.74) Laboratory Tests 10/11/18 12:29 Laboratory Tests 10/11/18 12:29 EKG EKG 12:[address] Blanco Afib without AVR, HR 108 no STEMI[] Radiology/Procedures Radiology/Procedures [] Course & Med Decision Making Course & Med Decision Making Pertinent Labs and Imaging studies reviewed. (See chart for details) This is a 88-year-old male patient presenting to the ED today to be admitted for placement. Patient resides at home by himself, August 2018. The family members are stating he is not able to care for himself. EKG shows Afib with no AVR. patient has no chest pain, documented hx of Afib. 13:[address] Cardozo who accepted patient for admission Routine banking services clerk consult placed 14:53 spoke with Jose Armando ROJO cable splicer. He will f/u with patient. Dragon Disclaimer Dragon Disclaimer This electronic medical record was generated, in whole or in part, using a voice recognition dictation system. Departure Departure Impression: Primary Impression: Total self-care deficit Additional Impressions: Failure to thrive UTI (urinary tract infection) A-fib Disposition: 09 ADMITTED INPATIENT Condition: STABLE Referrals: ARPAN ANDERSON Jr, MD (PCP) Problem Qualifiers Additional Impressions: Failure to thrive Failure to thrive age range: in adult Qualified Codes: R62.7 - Adult failure to thrive UTI (urinary tract infection) Urinary tract infection type: site unspecified Hematuria presence: without hematuria Qualified Codes: N39.0 - Urinary tract infection, site not specified A-fib Atrial fibrillation type: unspecified Qualified Codes: I48.91 - Unspecified atrial fibrillation GUILLERMO NIETO APRN Oct 11, 2018 14:27
[2018-10-11] MEDS ORDERED: ONDANSETRON PF 4 MG/2 ML VIAL. IV PRN (14:30)
[2018-10-11] MEDS ORDERED: ACETAMINOPHEN 325 MG TABLET. PO PRN (14:30)
[2018-10-11] MEDS ORDERED: CIPROFLOXACIN 400MG PREMIX 200 ML IV ONE (14:45)
--- NOTE | 2018-10-11 15:15 | PDOC2 ---
DIANE BANERJEE TRUCK RENTAL CLERK 10/11/18 1515: CARDIAC CONSULT DATE OF CONSULT Date of Consult DATE: 10/11/18 TIME: 15:06 REASON FOR CONSULT Reason for Consult: AFIB new onset REFERRING PHYSICIAN Referring Physician: Amy SOURCE Source: Chart review HISTORY OF PRESENT ILLNESS HISTORY OF PRESENT ILLNESS This is an 88 yo male admitted for poor self care and anorexia. His spouse just recently passed and he has been forgetful and unable to take care of himself and has not been eating well. He his stricken with grief as his came about in our conversation and just started crying. He is very distraught that he could not even visit his wifes grave as her ashes was brought to [place] by his spouse's daughter. He was crying and told me that he does not know what to do since she . He has AFIB and is between 100-110 and no AV mali agents were noted in his med list. He does not have any hx of CVA and told me that he does see any router machine operator. From my conversation with ED he is being considered for nsg home. No hx of CAD. Denies any CP, SOA, palpitations , passing dizziness, nause or vomiting or diarrhea. No fever or chills. PAST MEDICAL HISTORY Cardiovascular: AFIB, HTN, Hyperlipidemia CENTRAL NERVOUS SYSTEM: Dementia Psych: Anxiety Musculoskeletal: Osteoarthritis Rheumatologic: No pertinent hx Infectious disease: No pertinent hx ENT: No pertinent hx Renal/: Benign prostatic enlarg., Urinary Incontinence Endocrine: No pertinent hx Dermatology: No pertinent hx PAST SURGICAL HISTORY Past Surgical History: Cataract Removal, Hernia Repair (right inguinal), Tonsillectomy, Hysterectomy, Other (TURP) FAMILY HISTORY Family History: Family History Unknown SOCIAL HISTORY Smoke: No ALCOHOL: occassional Drugs: None Lives: Alone CURRENT MEDICATIONS CURRENT MEDICATIONS Current Medications Medications (Trade) Dose Ordered Sig/Catracho Route PRN Reason Start Time Stop Time Status Last Admin Dose Admin Sodium Chloride 1,000 ml @ 1,000 mls/hr 1X ONCE IV 10/11/18 13:45 10/11/18 14:44 DC 10/11/18 13:53 ALLERGIES ALLERGIES: Coded Allergies: Penicillins (Verified Allergy, Intermediate, HIVES, 10/12/18) ROS Review of System 14 point ROS evaluated with pertinent positives noted per HPI PHYSICAL EXAM General: Alert, Oriented X3, Cooperative, mild distress HEENT: Atraumatic, Mucous membr. moist/pink Lungs: Clear to auscultation, Normal air movement Heart: Other (AFIB; 2/6 systolic murmur to LLS border) Abdomen: Soft, No tenderness Extremities: No cyanosis, No edema Skin: No breakdown, No significant lesion Neuro: Normal speech, Sensation intact Psych/Mental Status: Other (depressed) MUSCULOSKELETAL: Osteoarthritic changes both hands VITALS VITALS Vital Signs Date Time Temp Pulse Resp B/P (MAP) Pulse Ox O2 Delivery O2 Flow Rate FiO2 10/11/18 12:15 97.8 106 18 133/68 (89) 96 Room Air 97.8 LABS Lab: Laboratory Tests Test 10/11/18 12:29 10/11/18 13:45 White Blood Count 5.9 x10^3/uL (4.0-11.0) Red Blood Count 5.23 x10^6/uL (4.30-5.70) Hemoglobin 14.5 g/dL (13.0-17.5) Hematocrit 42.9 % (39.0-53.0) Mean Corpuscular Volume 82 fL (79-100) Mean Corpuscular Hemoglobin 28 pg (25-35) Mean Corpuscular Hemoglobin Concent 34 g/dL (31-37) Red Cell Distribution Width 13.3 % (11.5-14.5) Platelet Count 160 x10^3/uL (140-400) Neutrophils (%) (Auto) 82 % (31-73) Lymphocytes (%) (Auto) 14 % (24-48) Monocytes (%) (Auto) 3 % (0-9) Eosinophils (%) (Auto) 1 % (0-3) Basophils (%) (Auto) 0 % (0-3) Neutrophils # (Auto) 4.8 x10^3uL (1.8-7.7) Lymphocytes # (Auto) 0.8 x10^3/uL (1.0-4.8) Monocytes # (Auto) 0.2 x10^3/uL (0.0-1.1) Eosinophils # (Auto) 0.0 x10^3/uL (0.0-0.7) Basophils # (Auto) 0.0 x10^3/uL (0.0-0.2) Prothrombin Time 19.2 SEC (11.7-14.0) Prothromb Time International Ratio 1.6 (0.8-1.1) Sodium Level 143 mmol/L (136-145) Potassium Level 3.7 mmol/L (3.5-5.1) Chloride Level 104 mmol/L (98-107) Carbon Dioxide Level 30 mmol/L (21-32) Anion Gap 9 (6-14) Blood Urea Nitrogen 14 mg/dL (8-26) Creatinine 1.1 mg/dL (0.7-1.3) Estimated GFR (Cockcroft-Gault) 63.3 BUN/Creatinine Ratio 13 (6-20) Glucose Level 142 mg/dL (70-99) Calcium Level 9.1 mg/dL (8.5-10.1) Magnesium Level 1.9 mg/dL (1.8-2.4) Total Bilirubin 1.2 mg/dL (0.2-1.0) Aspartate Amino Transf (AST/SGOT) 15 U/L (15-37) Alanine Aminotransferase (ALT/SGPT) 14 U/L (16-63) Alkaline Phosphatase 82 U/L (46-116) Troponin I Quantitative < 0.017 ng/mL (0.000-0.055) QW-Qal-V-Type Natriuretic Peptide 1497 pg/mL (0-449) Total Protein 6.9 g/dL (6.4-8.2) Albumin 3.6 g/dL (3.4-5.0) Albumin/Globulin Ratio 1.1 (1.0-1.7) Thyroid Stimulating Hormone (TSH) 2.056 uIU/mL (0.358-3.74) Urine Collection Type Unknown Urine Color Yellow Urine Clarity Clear Urine pH 6.5 Urine Specific [place] 1.015 Urine Protein Negative mg/dL (NEG-TRACE) Urine Glucose (UA) Negative mg/dL (NEG) Urine Ketones (Stick) Negative mg/dL (NEG) Urine Blood Negative (NEG) Urine Nitrite Negative (NEG) Urine Bilirubin Negative (NEG) Urine Urobilinogen Dipstick 1.0 mg/dL (0.2 mg/dL) Urine Leukocyte Esterase Small (NEG) Urine RBC 3-5 /HPF (0-2) Urine WBC 5-10 /HPF (0-4) Urine Squamous Epithelial Cells Few /LPF Urine Bacteria 0 /HPF (0-FEW) Urine Hyaline Casts Moderate /HPF Urine Mucus Marked /LPF Urine Opiates Screen Pos (NEG) Urine Methadone Screen Neg (NEG) Urine Barbiturates Neg (NEG) Urine Phencyclidine Screen Neg (NEG) Urine Amphetamine/Methamphetamine Neg (NEG) Urine Benzodiazepines Screen Neg (NEG) Urine Cocaine Screen Neg (NEG) Urine Cannabinoids Screen Neg (NEG) Urine Ethyl Alcohol Neg (NEG) ASSESSMENT/PLAN ASSESSMENT/PLAN 1. AFIB: not new likely chronic. rate 100-110 2. Dementia 3. NOAC: on eliquis. INR at 1.6 4. Possible UTI 5. HTN: controlled 6. HLP 7. Grief/depression/anorexia: recent loss of spouse 08/2018. per PCP Recommendations 1. NO prior TTE. Will obtain baseline. No AV mali agents. Unknown for hx of any bradyarrhythmias.No BB as this may worse his mental state, Low dose cardizem IR 2. Continue on eliquis. May need psych eval. Possible nsg home placement 3. Supportive care. TAMMY BOONE MD 10/12/18 0830: CARDIAC CONSULT ASSESSMENT/PLAN ASSESSMENT/PLAN Patient seen and examined 10/11/18. Agree with RFP WRITER's assessment and plan. Atrial fibrillation, rate better controlled Continue eliquis for stroke prophylaxis. Check 2-D echo to assess LV systolic function - could be done as an outpatient Thank you for your consultation DIANE BANERJEE APRN Oct 11, 2018 15:15 TAMMY BOONE MD Oct 12, 2018 08:30
[2018-10-11 16:24] VITALS: BP 128/67
[2018-10-11] MEDS ORDERED: ANTI-COAG MONITOR BY PHARMACY. MC PRN (17:15)
[2018-10-11] MEDS ORDERED: HYDR12.59 PO (18:37)
[2018-10-11 19:00] VITALS: BP 129/64
[2018-10-11] MEDS: dilTIAZem HCL 30 MG TABLET PO SCH (20:23)
[2018-10-11] MEDS: SIMVASTATIN 10 MG TABLET PO SCH (20:23)
[2018-10-11] MEDS: APIXABAN 5 MG TABLET. PO SCH (20:23)
[2018-10-11] MEDS: DONEPEZIL HCL 10 MG TABLET. PO SCH (20:24)
[2018-10-11 23:00] VITALS: BP 143/75
--- NOTE | 2018-10-12 01:33 | NUR ---
Patient agitated, pulls off court monitor, unable to convince him to allow staff to replace the monitor, strip already printed, will attempt to replace monitor when appears to be calmer,
--- NOTE | 2018-10-12 01:36 | NUR ---
Patient now agitated that the 'green light' on the smoke detector is blinking,--'It's never done this before..why is this in the house?' Attempt to reorient to being at the hospital, that all patient rooms have smoke alarms that have green blinking lights, to let staff know that is working properly. Remains agitated. Monitoring.
--- NOTE | 2018-10-12 01:40 | NUR ---
Patient in hallway, agitated, pounding his fist on the counter top; asking who brought him here; why is he here; we have no right to bring him here against his will, and he is going to [place]---Attempt to reorient him, Moriah, shore working supervisor here, assisting to reorient pt, who continues to shout and pound fist on the counter, assisted back to his room, Attempting to inform him that family (niece) brought him in..Ana Maria (?),---'well she's not family..who told you that...she's a niece...' numerous attempts to reorient, did finally agree to relax until breakfast when he can call 'his sister that lives with him' TO monitor patient.
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
[2018-10-12 07:00] VITALS: BP 164/85
[2018-10-12 07:02] LABS: BASO % 0 % (0-3); EOS # 0.1 x10^3/uL (0.0-0.7); EOS % 1 % (0-3); HEMATOCRIT 39.6 % (39.0-53.0); HEMOGLOBIN 13.4 g/dL (13.0-17.5); LYMPH % 17 % (24-48); MEAN CORPUSCULAR HEMOGLOBIN 27 pg (25-35); MEAN CORPUSCULAR HGB CONC 34 g/dL (31-37); MEAN CORPUSCULAR VOLUME 80 fL (79-100); MONO # 0.4 x10^3/uL (0.0-1.1); MONO % 6 % (0-9); NEUT # 4.4 x10^3uL (1.8-7.7); NEUT % 75 % (31-73); PLATELET COUNT 153 x10^3/uL (140-400); RED BLOOD COUNT 4.92 x10^6/uL (4.30-5.70); WHITE BLOOD COUNT 5.9 x10^3/uL (4.0-11.0)
[2018-10-12 07:14] LABS: CALCIUM 8.9 mg/dL (8.5-10.1); GFR 70.7; POTASSIUM 3.5 mmol/L (3.5-5.1)
--- NOTE | 2018-10-12 08:35 | PDOC ---
PROGRESS NOTES Chief Complaint Chief Complaint Assessment/Plan Normal bereavement Hx hypertension and A. fib by history-NSR and BP controlled currently Failure to thrive symptoms Plan: PT OT, okay to resume home meds once we have called his pharmacy at [facility] [address] Fall risk Regular diet History of Present Illness History of Present Illness 88-year-old male who lives alone at home, recently lost his August 2018-they have been for many years. Brought in by concerned of the patient's nephew because of failure to thrive symptoms. He has lost 25 pounds significantly. There are no groceries or no food at home. He is not taking care of himself since recent passing of his . Hence admitted here. He does not want to go to long term. We talked about his he cries to be at the emergency room. Labs are unremarkable with normal chest x-ray & normal vitals. Patient admitted because of legitimate concerns by the family. Clearly he is grieving but he is not taking care of himself alone at home. last night he became very agitated, not responding to redirection, believes his and mother are still alive, does not believe he is in the hospital. Plan: HX A. fib and hypertension by history but he does not recall his home meds hence we are calling his pharmacy at [facility] between [address] HE is currently NSR Zyprexa IM 5mg PRN for agitation, nightly prn trazodone or geodon Needs placement Vitals Vitals Vital Signs Date Time Temp Pulse Resp B/P (MAP) Pulse Ox O2 Delivery O2 Flow Rate FiO2 10/12/18 07:00 97.7 77 20 164/85 (111) 98 Room Air 97.7 Physical Exam General: Alert, Oriented X3, Cooperative, mild distress Heart: Other (AFIB; 2/6 systolic murmur to LLS border) Abdomen: Soft, No tenderness Extremities: No cyanosis, No edema Skin: No breakdown, No significant lesion Labs LABS Laboratory Tests Test 10/11/18 12:29 10/11/18 13:45 10/12/18 06:45 White Blood Count 5.9 x10^3/uL (4.0-11.0) 5.9 x10^3/uL (4.0-11.0) Red Blood Count 5.23 x10^6/uL (4.30-5.70) 4.92 x10^6/uL (4.30-5.70) Hemoglobin 14.5 g/dL (13.0-17.5) 13.4 g/dL (13.0-17.5) Hematocrit 42.9 % (39.0-53.0) 39.6 % (39.0-53.0) Mean Corpuscular Volume 82 fL (79-100) 80 fL (79-100) Mean Corpuscular Hemoglobin 28 pg (25-35) 27 pg (25-35) Mean Corpuscular Hemoglobin Concent 34 g/dL (31-37) 34 g/dL (31-37) Red Cell Distribution Width 13.3 % (11.5-14.5) 13.0 % (11.5-14.5) Platelet Count 160 x10^3/uL (140-400) 153 x10^3/uL (140-400) Neutrophils (%) (Auto) 82 % (31-73) 75 % (31-73) Lymphocytes (%) (Auto) 14 % (24-48) 17 % (24-48) Monocytes (%) (Auto) 3 % (0-9) 6 % (0-9) Eosinophils (%) (Auto) 1 % (0-3) 1 % (0-3) Basophils (%) (Auto) 0 % (0-3) 0 % (0-3) Neutrophils # (Auto) 4.8 x10^3uL (1.8-7.7) 4.4 x10^3uL (1.8-7.7) Lymphocytes # (Auto) 0.8 x10^3/uL (1.0-4.8) 1.0 x10^3/uL (1.0-4.8) Monocytes # (Auto) 0.2 x10^3/uL (0.0-1.1) 0.4 x10^3/uL (0.0-1.1) Eosinophils # (Auto) 0.0 x10^3/uL (0.0-0.7) 0.1 x10^3/uL (0.0-0.7) Basophils # (Auto) 0.0 x10^3/uL (0.0-0.2) 0.0 x10^3/uL (0.0-0.2) Prothrombin Time 19.2 SEC (11.7-14.0) Prothromb Time International Ratio 1.6 (0.8-1.1) Sodium Level 143 mmol/L (136-145) 138 mmol/L (136-145) Potassium Level 3.7 mmol/L (3.5-5.1) 3.5 mmol/L (3.5-5.1) Chloride Level 104 mmol/L (98-107) 104 mmol/L (98-107) Carbon Dioxide Level 30 mmol/L (21-32) 28 mmol/L (21-32) Anion Gap 9 (6-14) 6 (6-14) Blood Urea Nitrogen 14 mg/dL (8-26) 12 mg/dL (8-26) Creatinine 1.1 mg/dL (0.7-1.3) 1.0 mg/dL (0.7-1.3) Estimated GFR (Cockcroft-Gault) 63.3 70.7 BUN/Creatinine Ratio 13 (6-20) Glucose Level 142 mg/dL (70-99) 124 mg/dL (70-99) Calcium Level 9.1 mg/dL (8.5-10.1) 8.9 mg/dL (8.5-10.1) Magnesium Level 1.9 mg/dL (1.8-2.4) Total Bilirubin 1.2 mg/dL (0.2-1.0) Aspartate Amino Transf (AST/SGOT) 15 U/L (15-37) Alanine Aminotransferase (ALT/SGPT) 14 U/L (16-63) Alkaline Phosphatase 82 U/L (46-116) Troponin I Quantitative < 0.017 ng/mL (0.000-0.055) XM-Ahl-T-Type Natriuretic Peptide 1497 pg/mL (0-449) Total Protein 6.9 g/dL (6.4-8.2) Albumin 3.6 g/dL (3.4-5.0) Albumin/Globulin Ratio 1.1 (1.0-1.7) Thyroid Stimulating Hormone (TSH) 2.056 uIU/mL (0.358-3.74) Urine Collection Type Unknown Urine Color Yellow Urine Clarity Clear Urine pH 6.5 Urine Specific [place] 1.015 Urine Protein Negative mg/dL (NEG-TRACE) Urine Glucose (UA) Negative mg/dL (NEG) Urine Ketones (Stick) Negative mg/dL (NEG) Urine Blood Negative (NEG) Urine Nitrite Negative (NEG) Urine Bilirubin Negative (NEG) Urine Urobilinogen Dipstick 1.0 mg/dL (0.2 mg/dL) Urine Leukocyte Esterase Small (NEG) Urine RBC 3-5 /HPF (0-2) Urine WBC 5-10 /HPF (0-4) Urine Squamous Epithelial Cells Few /LPF Urine Bacteria 0 /HPF (0-FEW) Urine Hyaline Casts Moderate /HPF Urine Mucus Marked /LPF Urine Opiates Screen Pos (NEG) Urine Methadone Screen Neg (NEG) Urine Barbiturates Neg (NEG) Urine Phencyclidine Screen Neg (NEG) Urine Amphetamine/Methamphetamine Neg (NEG) Urine Benzodiazepines Screen Neg (NEG) Urine Cocaine Screen Neg (NEG) Urine Cannabinoids Screen Neg (NEG) Urine Ethyl Alcohol Neg (NEG) Assessment and Plan Assessmemt and Plan Problems Medical Problems: (1) A-fib Status: Acute (2) Total self-care deficit Status: Acute (3) UTI (urinary tract infection) Status: Acute Comment Review of Relevant I have reviewed the following items shoaib (where applicable) has been applied. Labs Laboratory Tests Test 10/11/18 12:29 10/11/18 13:45 10/12/18 06:45 White Blood Count 5.9 x10^3/uL (4.0-11.0) 5.9 x10^3/uL (4.0-11.0) Red Blood Count 5.23 x10^6/uL (4.30-5.70) 4.92 x10^6/uL (4.30-5.70) Hemoglobin 14.5 g/dL (13.0-17.5) 13.4 g/dL (13.0-17.5) Hematocrit 42.9 % (39.0-53.0) 39.6 % (39.0-53.0) Mean Corpuscular Volume 82 fL (79-100) 80 fL (79-100) Mean Corpuscular Hemoglobin 28 pg (25-35) 27 pg (25-35) Mean Corpuscular Hemoglobin Concent 34 g/dL (31-37) 34 g/dL (31-37) Red Cell Distribution Width 13.3 % (11.5-14.5) 13.0 % (11.5-14.5) Platelet Count 160 x10^3/uL (140-400) 153 x10^3/uL (140-400) Neutrophils (%) (Auto) 82 % (31-73) 75 % (31-73) Lymphocytes (%) (Auto) 14 % (24-48) 17 % (24-48) Monocytes (%) (Auto) 3 % (0-9) 6 % (0-9) Eosinophils (%) (Auto) 1 % (0-3) 1 % (0-3) Basophils (%) (Auto) 0 % (0-3) 0 % (0-3) Neutrophils # (Auto) 4.8 x10^3uL (1.8-7.7) 4.4 x10^3uL (1.8-7.7) Lymphocytes # (Auto) 0.8 x10^3/uL (1.0-4.8) 1.0 x10^3/uL (1.0-4.8) Monocytes # (Auto) 0.2 x10^3/uL (0.0-1.1) 0.4 x10^3/uL (0.0-1.1) Eosinophils # (Auto) 0.0 x10^3/uL (0.0-0.7) 0.1 x10^3/uL (0.0-0.7) Basophils # (Auto) 0.0 x10^3/uL (0.0-0.2) 0.0 x10^3/uL (0.0-0.2) Prothrombin Time 19.2 SEC (11.7-14.0) Prothromb Time International Ratio 1.6 (0.8-1.1) Sodium Level 143 mmol/L (136-145) 138 mmol/L (136-145) Potassium Level 3.7 mmol/L (3.5-5.1) 3.5 mmol/L (3.5-5.1) Chloride Level 104 mmol/L (98-107) 104 mmol/L (98-107) Carbon Dioxide Level 30 mmol/L (21-32) 28 mmol/L (21-32) Anion Gap 9 (6-14) 6 (6-14) Blood Urea Nitrogen 14 mg/dL (8-26) 12 mg/dL (8-26) Creatinine 1.1 mg/dL (0.7-1.3) 1.0 mg/dL (0.7-1.3) Estimated GFR (Cockcroft-Gault) 63.3 70.7 BUN/Creatinine Ratio 13 (6-20) Glucose Level 142 mg/dL (70-99) 124 mg/dL (70-99) Calcium Level 9.1 mg/dL (8.5-10.1) 8.9 mg/dL (8.5-10.1) Magnesium Level 1.9 mg/dL (1.8-2.4) Total Bilirubin 1.2 mg/dL (0.2-1.0) Aspartate Amino Transf (AST/SGOT) 15 U/L (15-37) Alanine Aminotransferase (ALT/SGPT) 14 U/L (16-63) Alkaline Phosphatase 82 U/L (46-116) Troponin I Quantitative < 0.017 ng/mL (0.000-0.055) KW-Yjk-P-Type Natriuretic Peptide 1497 pg/mL (0-449) Total Protein 6.9 g/dL (6.4-8.2) Albumin 3.6 g/dL (3.4-5.0) Albumin/Globulin Ratio 1.1 (1.0-1.7) Thyroid Stimulating Hormone (TSH) 2.056 uIU/mL (0.358-3.74) Urine Collection Type Unknown Urine Color Yellow Urine Clarity Clear Urine pH 6.5 Urine Specific [place] 1.015 Urine Protein Negative mg/dL (NEG-TRACE) Urine Glucose (UA) Negative mg/dL (NEG) Urine Ketones (Stick) Negative mg/dL (NEG) Urine Blood Negative (NEG) Urine Nitrite Negative (NEG) Urine Bilirubin Negative (NEG) Urine Urobilinogen Dipstick 1.0 mg/dL (0.2 mg/dL) Urine Leukocyte Esterase Small (NEG) Urine RBC 3-5 /HPF (0-2) Urine WBC 5-10 /HPF (0-4) Urine Squamous Epithelial Cells Few /LPF Urine Bacteria 0 /HPF (0-FEW) Urine Hyaline Casts Moderate /HPF Urine Mucus Marked /LPF Urine Opiates Screen Pos (NEG) Urine Methadone Screen Neg (NEG) Urine Barbiturates Neg (NEG) Urine Phencyclidine Screen Neg (NEG) Urine Amphetamine/Methamphetamine Neg (NEG) Urine Benzodiazepines Screen Neg (NEG) Urine Cocaine Screen Neg (NEG) Urine Cannabinoids Screen Neg (NEG) Urine Ethyl Alcohol Neg (NEG) Laboratory Tests Test 10/11/18 12:29 10/11/18 13:45 10/12/18 06:45 White Blood Count 5.9 x10^3/uL (4.0-11.0) 5.9 x10^3/uL (4.0-11.0) Red Blood Count 5.23 x10^6/uL (4.30-5.70) 4.92 x10^6/uL (4.30-5.70) Hemoglobin 14.5 g/dL (13.0-17.5) 13.4 g/dL (13.0-17.5) Hematocrit 42.9 % (39.0-53.0) 39.6 % (39.0-53.0) Mean Corpuscular Volume 82 fL (79-100) 80 fL (79-100) Mean Corpuscular Hemoglobin 28 pg (25-35) 27 pg (25-35) Mean Corpuscular Hemoglobin Concent 34 g/dL (31-37) 34 g/dL (31-37) Red Cell Distribution Width 13.3 % (11.5-14.5) 13.0 % (11.5-14.5) Platelet Count 160 x10^3/uL (140-400) 153 x10^3/uL (140-400) Neutrophils (%) (Auto) 82 % (31-73) 75 % (31-73) Lymphocytes (%) (Auto) 14 % (24-48) 17 % (24-48) Monocytes (%) (Auto) 3 % (0-9) 6 % (0-9) Eosinophils (%) (Auto) 1 % (0-3) 1 % (0-3) Basophils (%) (Auto) 0 % (0-3) 0 % (0-3) Neutrophils # (Auto) 4.8 x10^3uL (1.8-7.7) 4.4 x10^3uL (1.8-7.7) Lymphocytes # (Auto) 0.8 x10^3/uL (1.0-4.8) 1.0 x10^3/uL (1.0-4.8) Monocytes # (Auto) 0.2 x10^3/uL (0.0-1.1) 0.4 x10^3/uL (0.0-1.1) Eosinophils # (Auto) 0.0 x10^3/uL (0.0-0.7) 0.1 x10^3/uL (0.0-0.7) Basophils # (Auto) 0.0 x10^3/uL (0.0-0.2) 0.0 x10^3/uL (0.0-0.2) Prothrombin Time 19.2 SEC (11.7-14.0) Prothromb Time International Ratio 1.6 (0.8-1.1) Sodium Level 143 mmol/L (136-145) 138 mmol/L (136-145) Potassium Level 3.7 mmol/L (3.5-5.1) 3.5 mmol/L (3.5-5.1) Chloride Level 104 mmol/L (98-107) 104 mmol/L (98-107) Carbon Dioxide Level 30 mmol/L (21-32) 28 mmol/L (21-32) Anion Gap 9 (6-14) 6 (6-14) Blood Urea Nitrogen 14 mg/dL (8-26) 12 mg/dL (8-26) Creatinine 1.1 mg/dL (0.7-1.3) 1.0 mg/dL (0.7-1.3) Estimated GFR (Cockcroft-Gault) 63.3 70.7 BUN/Creatinine Ratio 13 (6-20) Glucose Level 142 mg/dL (70-99) 124 mg/dL (70-99) Calcium Level 9.1 mg/dL (8.5-10.1) 8.9 mg/dL (8.5-10.1) Magnesium Level 1.9 mg/dL (1.8-2.4) Total Bilirubin 1.2 mg/dL (0.2-1.0) Aspartate Amino Transf (AST/SGOT) 15 U/L (15-37) Alanine Aminotransferase (ALT/SGPT) 14 U/L (16-63) Alkaline Phosphatase 82 U/L (46-116) Troponin I Quantitative < 0.017 ng/mL (0.000-0.055) CX-Dwr-Q-Type Natriuretic Peptide 1497 pg/mL (0-449) Total Protein 6.9 g/dL (6.4-8.2) Albumin 3.6 g/dL (3.4-5.0) Albumin/Globulin Ratio 1.1 (1.0-1.7) Thyroid Stimulating Hormone (TSH) 2.056 uIU/mL (0.358-3.74) Urine Collection Type Unknown Urine Color Yellow Urine Clarity Clear Urine pH 6.5 Urine Specific [place] 1.015 Urine Protein Negative mg/dL (NEG-TRACE) Urine Glucose (UA) Negative mg/dL (NEG) Urine Ketones (Stick) Negative mg/dL (NEG) Urine Blood Negative (NEG) Urine Nitrite Negative (NEG) Urine Bilirubin Negative (NEG) Urine Urobilinogen Dipstick 1.0 mg/dL (0.2 mg/dL) Urine Leukocyte Esterase Small (NEG) Urine RBC 3-5 /HPF (0-2) Urine WBC 5-10 /HPF (0-4) Urine Squamous Epithelial Cells Few /LPF Urine Bacteria 0 /HPF (0-FEW) Urine Hyaline Casts Moderate /HPF Urine Mucus Marked /LPF Urine Opiates Screen Pos (NEG) Urine Methadone Screen Neg (NEG) Urine Barbiturates Neg (NEG) Urine Phencyclidine Screen Neg (NEG) Urine Amphetamine/Methamphetamine Neg (NEG) Urine Benzodiazepines Screen Neg (NEG) Urine Cocaine Screen Neg (NEG) Urine Cannabinoids Screen Neg (NEG) Urine Ethyl Alcohol Neg (NEG) Medications Current Medications Sodium Chloride 1,000 ml @ 1,000 mls/hr 1X ONCE IV Last administered on at 13:53; Start 10/11/18 at 13:45; Stop 10/11/18 at 14:44; Status DC Alprazolam (Xanax) 0.25 mg PRN Q8HRS PRN PO ANXIETY / AGITATION Last administered on 10/11/18at 20:24; Start 10/11/18 at 14:00 Acetaminophen (Tylenol) 500 mg PRN Q6HRS PRN PO MILD PAIN / TEMP; Start at 14:00 Ibuprofen (Motrin) 400 mg PRN Q6HRS PRN PO INFLAMMATION; Start 10/11/18 at 14: 00 Temazepam (Restoril) 7.5 mg PRN QHS PRN PO INSOMNIA Last administered on at 20:22; Start 10/11/18 at 14:00 Al Hydroxide/Mg Hydroxide (Mylanta Plus Xs) 30 ml PRN Q2HR PRN PO HEARTBURN / GAS; Start 10/11/18 at 14:00 Ondansetron HCl (Zofran) 4 mg PRN Q8HRS PRN IV NAUSEA/VOMITING; Start 10/11/18 at 14:30; Stop 10/12/18 at 14:29 Acetaminophen (Tylenol) 650 mg PRN Q4HRS PRN PO FEVER; Start 10/11/18 at 14:30 ; Stop 10/12/18 at 14:29 Ciprofloxacin/ Dextrose 200 ml @ 200 mls/hr 1X ONCE IV Last administered on at 15:17; Start 10/11/18 at 14:45; Stop 10/11/18 at 15:44; Status DC Diltiazem HCl (Cardizem) 30 mg BID PO Last administered on 10/11/18at 20:23; Start 10/11/18 at 21:00 Apixaban (Eliquis) 5 mg BID PO Last administered on 10/11/18at 20:23; Start 08/19 at 21:00 Info (Anti-Coagulation Monitoring By Pharmacy) 1 each PRN DAILY PRN MC SEE COMMENTS; Start 10/11/18 at 17:15 Simvastatin (Zocor) 10 mg HS PO Last administered on 10/11/18at 20:23; Start 08/19 at 21:00 Tamsulosin HCl (Flomax) 0.4 mg DAILY PO ; Start 10/12/18 at 09:00 Donepezil HCl (Aricept) 5 mg QHS PO Last administered on 10/11/18at 20:24; Start 10/11/18 at 21:00 Hydrochlorothiazide (Microzide) 12.5 mg DAILY PO ; Start 10/12/18 at 09:00 Lisinopril (Prinivil) 20 mg DAILY PO ; Start 10/12/18 at 09:00 Active Scripts Active Tamsulosin Hcl 0.4 Mg Cap.er.24h 0.4 Mg PO DAILY 30 Days Reported Hydrochlorothiazide 12.5 Mg Capsule 12.5 Mg PO DAILY Donepezil Hcl 5 Mg Tablet 1 Tab PO HS Quinapril Hcl 20 Mg Tablet 20 Mg PO DAILY Simvastatin 10 Mg Tablet 10 Mg PO HS Eliquis (Apixaban) 5 Mg Tablet 5 Mg PO BID Vitals/I & O Vital Sign - Last 24 Hours 10/11/18 10/11/18 10/11/18 10/11/18 12:15 12:47 13:17 14:12 Temp 97.8 97.8 Pulse 106 100 90 84 Resp 18 20 16 16 B/P (MAP) 133/68 (89) 106/64 (78) 134/73 (93) 136/71 (92) Pulse Ox 96 99 99 99 O2 Delivery Room Air Room Air 10/11/18 10/11/18 10/11/18 10/11/18 14:42 16:24 17:00 19:00 Temp 97.7 98.4 97.7 98.4 Pulse 84 81 80 Resp 16 18 18 B/P (MAP) 146/75 (98) 128/67 (87) 129/64 (85) Pulse Ox 99 99 99 O2 Delivery Room Air Room Air Room Air Room Air 10/11/18 10/11/18 10/11/18 10/12/18 20:20 20:23 23:00 07:00 Temp 97.6 97.7 97.6 97.7 Pulse 80 67 77 Resp 18 20 B/P (MAP) 129/64 143/75 (97) 164/85 (111) Pulse Ox 99 98 O2 Delivery Room Air Room Air Room Air Intake and Output 10/11/18 10/11/18 10/12/18 15:01 23:01 07:01 Intake Total 1000 ml 180 ml Balance 1000 ml 180 ml WING ALFARO MD Oct 12, 2018 08:35
[2018-10-12] MEDS: TAMSULOSIN 0.4 MG CAP.ER.24H. PO SCH (08:54)
[2018-10-12] MEDS: hydroCHLOROthiazide 12.5 MG CAPSULE PO SCH (08:54)
[2018-10-12] MEDS: dilTIAZem HCL 30 MG TABLET PO SCH ×2 (08:54→19:43)
[2018-10-12] MEDS: APIXABAN 5 MG TABLET. PO SCH ×2 (08:54→19:43)
[2018-10-12] MEDS: LISINOPRIL 20 MG TABLET PO SCH (08:55)
[2018-10-12 11:00] VITALS: BP 113/77
[2018-10-12] MEDS ORDERED: ZIPRASIDONE 20 MG CAPSULE PO PRN (14:15)
[2018-10-12] MEDS ORDERED: OLANZapine IM 10 MG VIAL. IM PRN (14:15)
[2018-10-12 15:00] VITALS: BP 144/84
--- NOTE | 2018-10-12 18:28 | NUR ---
Patient has been agitated all day, more so now. We have given Zyprexa. This helped for a short time. He has become so agitated that he has stated more than once that if we won't let him leave and look for his car or go where he wants to go that he will "commit suicide" or "blow his brains out!" The doctor has been paged. Still waiting for a response. Will continue to monitor. Trying to get a sitter for the night.
[2018-10-12] MEDS ORDERED: LORazepam 0.5 MG TABLET PO ONE (19:30)
[2018-10-12 19:43] VITALS: BP 118/64
[2018-10-12] MEDS: SIMVASTATIN 10 MG TABLET PO SCH (19:43)
[2018-10-12] MEDS: DONEPEZIL HCL 10 MG TABLET. PO SCH (19:43)
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
[2018-10-13] MEDS: dilTIAZem HCL 30 MG TABLET PO SCH ×2 (10:02→19:20)
[2018-10-13] MEDS: hydroCHLOROthiazide 12.5 MG CAPSULE PO SCH (10:02)
[2018-10-13] MEDS: LISINOPRIL 20 MG TABLET PO SCH (10:02)
[2018-10-13] MEDS: APIXABAN 5 MG TABLET. PO SCH ×2 (10:02→19:20)
[2018-10-13] MEDS: TAMSULOSIN 0.4 MG CAP.ER.24H. PO SCH (10:02)
[2018-10-13 10:07] VITALS: BP 117/60
--- NOTE | 2018-10-13 10:43 | PDOC ---
PROGRESS NOTES Chief Complaint Chief Complaint Assessment/Plan Normal bereavement Hx hypertension and A. fib by history-NSR and BP controlled currently Failure to thrive symptoms Plan: PT OT, okay to resume home meds once we have called his pharmacy at [facility] [address] Fall risk Regular diet History of Present Illness History of Present Illness 88-year-old male who lives alone at home, recently lost his August 2018-they have been for many years. Brought in by concerned of the patient's nephew because of failure to thrive symptoms. He has lost 25 pounds significantly. There are no groceries or no food at home. He is not taking care of himself since recent passing of his . Hence admitted here. He does not want to go to fdc. We talked about his he cries to be at the emergency room. Labs are unremarkable with normal chest x-ray & normal vitals. Patient admitted because of legitimate concerns by the family. Clearly he is grieving but he is not taking care of himself alone at home. last night he became very agitated, not responding to redirection, believes his and mother are still alive, does not believe he is in the hospital. He responded very well with oral geodon Plan: HX A. fib and hypertension by history but he does not recall his home meds hence we are calling his pharmacy at [facility] between [address] HE is currently NSR Zyprexa IM 5mg PRN for agitation was not very effective, nightly prn trazodone and geodon Needs placement Vitals Vitals Vital Signs Date Time Temp Pulse Resp B/P (MAP) Pulse Ox O2 Delivery O2 Flow Rate FiO2 10/13/18 10:07 75 18 117/60 (79) 99 Room Air 10/12/18 19:43 98.1 98.1 Physical Exam General: Alert, Oriented X3, Cooperative, mild distress Heart: Other (AFIB; 2/6 systolic murmur to LLS border) Abdomen: Soft, No tenderness Extremities: No cyanosis, No edema Skin: No breakdown, No significant lesion Assessment and Plan Assessmemt and Plan Problems Medical Problems: (1) A-fib Status: Acute (2) Total self-care deficit Status: Acute (3) UTI (urinary tract infection) Status: Acute Comment Review of Relevant I have reviewed the following items shoaib (where applicable) has been applied. Labs Laboratory Tests Test 10/11/18 12:29 10/11/18 13:45 10/12/18 06:45 White Blood Count 5.9 x10^3/uL (4.0-11.0) 5.9 x10^3/uL (4.0-11.0) Red Blood Count 5.23 x10^6/uL (4.30-5.70) 4.92 x10^6/uL (4.30-5.70) Hemoglobin 14.5 g/dL (13.0-17.5) 13.4 g/dL (13.0-17.5) Hematocrit 42.9 % (39.0-53.0) 39.6 % (39.0-53.0) Mean Corpuscular Volume 82 fL (79-100) 80 fL (79-100) Mean Corpuscular Hemoglobin 28 pg (25-35) 27 pg (25-35) Mean Corpuscular Hemoglobin Concent 34 g/dL (31-37) 34 g/dL (31-37) Red Cell Distribution Width 13.3 % (11.5-14.5) 13.0 % (11.5-14.5) Platelet Count 160 x10^3/uL (140-400) 153 x10^3/uL (140-400) Neutrophils (%) (Auto) 82 % (31-73) 75 % (31-73) Lymphocytes (%) (Auto) 14 % (24-48) 17 % (24-48) Monocytes (%) (Auto) 3 % (0-9) 6 % (0-9) Eosinophils (%) (Auto) 1 % (0-3) 1 % (0-3) Basophils (%) (Auto) 0 % (0-3) 0 % (0-3) Neutrophils # (Auto) 4.8 x10^3uL (1.8-7.7) 4.4 x10^3uL (1.8-7.7) Lymphocytes # (Auto) 0.8 x10^3/uL (1.0-4.8) 1.0 x10^3/uL (1.0-4.8) Monocytes # (Auto) 0.2 x10^3/uL (0.0-1.1) 0.4 x10^3/uL (0.0-1.1) Eosinophils # (Auto) 0.0 x10^3/uL (0.0-0.7) 0.1 x10^3/uL (0.0-0.7) Basophils # (Auto) 0.0 x10^3/uL (0.0-0.2) 0.0 x10^3/uL (0.0-0.2) Prothrombin Time 19.2 SEC (11.7-14.0) Prothromb Time International Ratio 1.6 (0.8-1.1) Sodium Level 143 mmol/L (136-145) 138 mmol/L (136-145) Potassium Level 3.7 mmol/L (3.5-5.1) 3.5 mmol/L (3.5-5.1) Chloride Level 104 mmol/L (98-107) 104 mmol/L (98-107) Carbon Dioxide Level 30 mmol/L (21-32) 28 mmol/L (21-32) Anion Gap 9 (6-14) 6 (6-14) Blood Urea Nitrogen 14 mg/dL (8-26) 12 mg/dL (8-26) Creatinine 1.1 mg/dL (0.7-1.3) 1.0 mg/dL (0.7-1.3) Estimated GFR (Cockcroft-Gault) 63.3 70.7 BUN/Creatinine Ratio 13 (6-20) Glucose Level 142 mg/dL (70-99) 124 mg/dL (70-99) Calcium Level 9.1 mg/dL (8.5-10.1) 8.9 mg/dL (8.5-10.1) Magnesium Level 1.9 mg/dL (1.8-2.4) Total Bilirubin 1.2 mg/dL (0.2-1.0) Aspartate Amino Transf (AST/SGOT) 15 U/L (15-37) Alanine Aminotransferase (ALT/SGPT) 14 U/L (16-63) Alkaline Phosphatase 82 U/L (46-116) Troponin I Quantitative < 0.017 ng/mL (0.000-0.055) XU-Efe-T-Type Natriuretic Peptide 1497 pg/mL (0-449) Total Protein 6.9 g/dL (6.4-8.2) Albumin 3.6 g/dL (3.4-5.0) Albumin/Globulin Ratio 1.1 (1.0-1.7) Thyroid Stimulating Hormone (TSH) 2.056 uIU/mL (0.358-3.74) Urine Collection Type Unknown Urine Color Yellow Urine Clarity Clear Urine pH 6.5 Urine Specific Sapello 1.015 Urine Protein Negative mg/dL (NEG-TRACE) Urine Glucose (UA) Negative mg/dL (NEG) Urine Ketones (Stick) Negative mg/dL (NEG) Urine Blood Negative (NEG) Urine Nitrite Negative (NEG) Urine Bilirubin Negative (NEG) Urine Urobilinogen Dipstick 1.0 mg/dL (0.2 mg/dL) Urine Leukocyte Esterase Small (NEG) Urine RBC 3-5 /HPF (0-2) Urine WBC 5-10 /HPF (0-4) Urine Squamous Epithelial Cells Few /LPF Urine Bacteria 0 /HPF (0-FEW) Urine Hyaline Casts Moderate /HPF Urine Mucus Marked /LPF Urine Opiates Screen Pos (NEG) Urine Methadone Screen Neg (NEG) Urine Barbiturates Neg (NEG) Urine Phencyclidine Screen Neg (NEG) Urine Amphetamine/Methamphetamine Neg (NEG) Urine Benzodiazepines Screen Neg (NEG) Urine Cocaine Screen Neg (NEG) Urine Cannabinoids Screen Neg (NEG) Urine Ethyl Alcohol Neg (NEG) Medications Current Medications Sodium Chloride 1,000 ml @ 1,000 mls/hr 1X ONCE IV Last administered on at 13:53; Start 10/11/18 at 13:45; Stop 10/11/18 at 14:44; Status DC Alprazolam (Xanax) 0.25 mg PRN Q8HRS PRN PO ANXIETY / AGITATION Last administered on 10/11/18at 20:24; Start 10/11/18 at 14:00 Acetaminophen (Tylenol) 500 mg PRN Q6HRS PRN PO MILD PAIN / TEMP; Start at 14:00 Ibuprofen (Motrin) 400 mg PRN Q6HRS PRN PO INFLAMMATION; Start 10/11/18 at 14: 00 Temazepam (Restoril) 7.5 mg PRN QHS PRN PO INSOMNIA Last administered on at 20:22; Start 10/11/18 at 14:00 Al Hydroxide/Mg Hydroxide (Mylanta Plus Xs) 30 ml PRN Q2HR PRN PO HEARTBURN / GAS; Start 10/11/18 at 14:00 Ondansetron HCl (Zofran) 4 mg PRN Q8HRS PRN IV NAUSEA/VOMITING; Start 10/11/18 at 14:30; Stop 10/12/18 at 14:29; Status DC Acetaminophen (Tylenol) 650 mg PRN Q4HRS PRN PO FEVER; Start 10/11/18 at 14:30 ; Stop 10/12/18 at 14:29; Status DC Ciprofloxacin/ Dextrose 200 ml @ 200 mls/hr 1X ONCE IV Last administered on at 15:17; Start 10/11/18 at 14:45; Stop 10/11/18 at 15:44; Status DC Diltiazem HCl (Cardizem) 30 mg BID PO Last administered on 10/13/18at 10:02; Start 10/11/18 at 21:00 Apixaban (Eliquis) 5 mg BID PO Last administered on 10/13/18 10:02; Start 08/19 at 21:00 Info (Anti-Coagulation Monitoring By Pharmacy) 1 each PRN DAILY PRN MC SEE COMMENTS; Start 10/11/18 at 17:15 Simvastatin (Zocor) 10 mg HS PO Last administered on 10/12/18at 19:43; Start 08/19 at 21:00 Tamsulosin HCl (Flomax) 0.4 mg DAILY PO Last administered on 10/13/18 10:02; Start 10/12/18 at 09:00 Donepezil HCl (Aricept) 5 mg QHS PO Last administered on 10/12/18at 19:43; Start 10/11/18 at 21:00 Hydrochlorothiazide (Microzide) 12.5 mg DAILY PO Last administered on 10:02; Start 10/12/18 at 09:00 Lisinopril (Prinivil) 20 mg DAILY PO Last administered on 10/13/18 10:02; Start 10/12/18 at 09:00 Trazodone HCl (Desyrel) 100 mg PRN QHS PRN PO sleep; Start 10/12/18 at 21:00 Olanzapine (ZyPREXA IM) 5 mg PRN BID PRN IM agitation Last administered on 10/12at 14:47; Start 10/12/18 at 14:15 Ziprasidone (Geodon) 20 mg PRN QHS PRN PO sleep Last administered on 10/12/18at 19:43; Start 10/12/18 at 14:15 Lorazepam (Ativan) 0.5 mg 1X ONCE PO Last administered on 10/12/18at 19:06; Start 10/12/18 at 19:30; Stop 10/12/18 at 19:31; Status DC Active Scripts Active Tamsulosin Hcl 0.4 Mg Cap.er.24h 0.4 Mg PO DAILY 30 Days Reported Hydrochlorothiazide 12.5 Mg Capsule 12.5 Mg PO DAILY Donepezil Hcl 5 Mg Tablet 1 Tab PO HS Quinapril Hcl 20 Mg Tablet 20 Mg PO DAILY Simvastatin 10 Mg Tablet 10 Mg PO HS Eliquis (Apixaban) 5 Mg Tablet 5 Mg PO BID Vitals/I & O Vital Sign - Last 24 Hours 10/12/18 10/12/18 10/12/18 10/12/18 11:00 15:00 19:10 19:43 Temp 97.6 97.6 98.1 97.6 97.6 98.1 Pulse 78 96 101 Resp 20 20 17 B/P (MAP) 113/77 (89) 144/84 (104) 118/64 (82) Pulse Ox 96 95 97 O2 Delivery Room Air Room Air Room Air Room Air 10/12/18 10/12/18 10/13/18 10/13/18 19:43 23:00 03:00 10:02 Pulse 96 75 Resp 18 B/P (MAP) 144/84 117/60 O2 Delivery Room Air Room Air 10/13/18 10/13/18 10:02 10:07 Pulse 75 75 Resp 18 B/P (MAP) 117/60 117/60 (79) Pulse Ox 99 O2 Delivery Room Air Intake and Output 10/12/18 10/12/18 10/13/18 15:01 23:01 07:01 Intake Total 600 ml 300 ml 300 ml Balance 600 ml 300 ml 300 ml WING ALFARO MD Oct 13, 2018 10:42
[2018-10-13] MEDS ORDERED: OLANZapine IM 10 MG VIAL. IM PRN (10:45)
[2018-10-13 15:33] VITALS: BP 108/57
--- NOTE | 2018-10-13 16:33 | CARD ---
MR#: [id number] Date of Study: 10/13/2018 Ordering Physician: DIANE BANERJEE, Referring Physician: CHARLIE VELASQUEZ Tech: Priscila Abel [facility] APPROVED REPORT EXAM: Two-dimensional and M-mode echocardiogram with Doppler and color Doppler. Other Information Quality : FairHR: 95bpm Rhythm : Atrial Fibrillation INDICATION Atrial Fibrillation 2D DIMENSIONS Left Atrium(2D)4.7 (1.6-4.0cm)IVSd1.1 (0.7-1.1cm) Aortic Root(2D)2.7 (2.0-3.7cm)LVDd4.7 (3.9-5.9cm) LVOT Diameter2.2 (1.8-2.4cm)PWd1.0 (0.7-1.1cm) LA Lxwelo01 (18-58mL)LVDs3.5 (2.5-4.0cm) FS (%) 25.7 %SV51.7 ml LVEF(%)50.6 (>50%)CO4.9 L/min M-Mode DIMENSIONS Aortic Cusp Exc2.05 (1.5-2.0cm) Aortic Valve AoV Peak Waqar.133.7cm/sAoV VTI24.1cm AO Peak GR.7.2mmHgLVOT VTI 20.76cm AO Mean GR.4mmHgAVA (VTI)3.15cm2 Mitral Valve MV E Btynfngn40.3cm/sMV DECEL [id number] TDI Lateral E' P. V13.08cm/sMedial E' P. V11.29cm/s E/Lateral E'7.4E/Medial E'8.5 Tricuspid Valve TR P. [id number]/sRAP [id number] TR Peak Gr.23zdKkEQXO32bbYd LEFT VENTRICLE The left ventricle is normal size. There is normal left ventricular wall thickness. The left ventricu lar systolic function is normal. The ejection fraction is estimated at 60%. There is normal LV segmen marcial wall motion. No left ventricle thrombus noted on this study. There is no ventricular septal defec t visualized. There is no left ventricular aneurysm. There is no mass noted in the left ventricle. RIGHT VENTRICLE The right ventricle is normal size. There is normal right ventricular wall thickness. The right ventr icular systolic function is normal. ATRIA The left atrium is moderately dilated. The right atrium size is normal. The interatrial septum is int act with no evidence for an atrial septal defect or patent foramen ovale as noted on 2-D or Doppler i maging. AORTIC VALVE The aortic valve is normal in structure and function. Doppler and Color Flow revealed no significant aortic regurgitation. There is no significant aortic valvular stenosis. There is no aortic valvular v egetation. MITRAL VALVE The mitral valve is normal in structure and function. There is no evidence of mitral valve prolapse. There is no mitral valve stenosis. Doppler and Color Flow revealed mild mitral regurgitation. TRICUSPID VALVE The tricuspid valve is normal in structure and function. Doppler and Color Flow revealed trace to mil d tricuspid regurgitation. There is no tricuspid valve prolapse or vegetation. There is no tricuspid valve stenosis. PULMONIC VALVE The pulmonary valve is normal in structure and function. Doppler and Color Flow revealed trace pulmon ic valvular regurgitation. There is no pulmonic valvular stenosis. GREAT VESSELS The aortic root is normal in size. The IVC is normal in size and collapses >50% with inspiration. PERICARDIAL EFFUSION There is no pleural effusion. There is no evidence of significant pericardial effusion. Critical Notification Critical Value: No <Conclusion> The left ventricular systolic function is normal. The ejection fraction is estimated at 60%. There is normal LV segmental wall motion. The left atrium is moderately dilated. Mild mitral regurgitation. Trace to mild tricuspid regurgitation. There is no evidence of significant pericardial effusion. Signed by : Tre Carroll, Electronically Approved : 10/13/2018 16:31:24
[2018-10-13 19:00] VITALS: BP 122/53
[2018-10-13] MEDS: ZIPRASIDONE 20 MG CAPSULE PO PRN (19:19)
[2018-10-13] MEDS: traZODone 100 MG TABLET. PO PRN (19:19)
[2018-10-13] MEDS: DONEPEZIL HCL 10 MG TABLET. PO SCH (19:19)
[2018-10-13] MEDS: SIMVASTATIN 10 MG TABLET PO SCH (19:20)
--- NOTE | 2018-10-14 05:00 | NUR ---
Pt refused to wear heart monitor last night. Often refusing vitals. Much more calm after trazadone and geodon given at bedtime.
--- NOTE | 2018-10-14 09:39 | NUR ---
PATIENT HAS NOT BEEN ON TELE. PATIENT HAS REFUSED.
[2018-10-14] MEDS: TAMSULOSIN 0.4 MG CAP.ER.24H. PO SCH (10:28)
[2018-10-14] MEDS: dilTIAZem HCL 30 MG TABLET PO SCH ×2 (10:28→20:19)
[2018-10-14] MEDS: hydroCHLOROthiazide 12.5 MG CAPSULE PO SCH (10:28)
[2018-10-14] MEDS: LISINOPRIL 20 MG TABLET PO SCH (10:29)
[2018-10-14] MEDS: APIXABAN 5 MG TABLET. PO SCH ×2 (10:29→20:18)
[2018-10-14 10:48] VITALS: BP 143/73
--- NOTE | 2018-10-14 11:15 | NUR ---
BEVERLEY consulted for dc needs. BEVERLEY spoke with pt's Nieces Manuela and Leticia in room. Pt has been living alone at home since his on August 2018. Family is concerned about pt going home as he is increasingly confused and not able to care for him self at home. Pt owns his house and does not have LTC insurance. BEVERLEY extensively discussed Medicare, Medicaid and placement options. Pt does not have DPOA at this time. BEVERLEY provided family a Medicaid application and both nieces informed BEVERLEY they will be completing it today. Family agreeable with pt being screened at Various facilities but chose [facility] choice. BEVERLEY phoned and faxed referral to [facility], [facility], [facility], [facility], [facility] post acute and [facility] and [facility]. Pt admission and acceptance pending. BEVERLEY will continue to follow.
--- NOTE | 2018-10-14 12:07 | PDOC ---
PROGRESS NOTES Chief Complaint Chief Complaint CC: Failure to thrive. Depression History of Present Illness History of Present Illness Patient seen and examined. Was seen this morning with his niece present. Discussed possible options for discharge. Vitals Vitals Vital Signs Date Time Temp Pulse Resp B/P (MAP) Pulse Ox O2 Delivery O2 Flow Rate FiO2 10/14/18 10:48 97.6 94 18 143/73 (96) 97 Room Air 97.6 Physical Exam General: Alert, Oriented X3, Cooperative, No acute distress, mild distress Heart: Regular rate, Normal S1, Normal S2, Other (AFIB; 2/6 systolic murmur to LLS border) Lungs: Clear Abdomen: Soft, No tenderness Extremities: No cyanosis, No edema Skin: No breakdown, No significant lesion Review of Systems Review of Systems Heart: Denies chest pain Lungs: denies soa Integument: denies rash Assessment and Plan Assessmemt and Plan Assessment 1. Normal bereavement 2. Failure to thrive symptoms Plan: 1. Labs 2. PT OT 3. Fall risk 4. Regular diet 5. Home meds 6. Discharge Disposition Pending Comment Review of Relevant I have reviewed the following items shoaib (where applicable) has been applied. Labs Microbiology 10/11/18 Urine Culture - Final, Complete 10/11/18 Urine Culture Result 1 (ALEXIA) - Final, Complete Medications Current Medications Sodium Chloride 1,000 ml @ 1,000 mls/hr 1X ONCE IV Last administered on at 13:53; Start 10/11/18 at 13:45; Stop 10/11/18 at 14:44; Status DC Alprazolam (Xanax) 0.25 mg PRN Q8HRS PRN PO ANXIETY / AGITATION Last administered on 10/11/18at 20:24; Start 10/11/18 at 14:00 Acetaminophen (Tylenol) 500 mg PRN Q6HRS PRN PO MILD PAIN / TEMP; Start at 14:00 Ibuprofen (Motrin) 400 mg PRN Q6HRS PRN PO INFLAMMATION; Start 10/11/18 at 14: 00 Temazepam (Restoril) 7.5 mg PRN QHS PRN PO INSOMNIA Last administered on at 20:22; Start 10/11/18 at 14:00 Al Hydroxide/Mg Hydroxide (Mylanta Plus Xs) 30 ml PRN Q2HR PRN PO HEARTBURN / GAS; Start 10/11/18 at 14:00 Ondansetron HCl (Zofran) 4 mg PRN Q8HRS PRN IV NAUSEA/VOMITING; Start 10/11/18 at 14:30; Stop 10/12/18 at 14:29; Status DC Acetaminophen (Tylenol) 650 mg PRN Q4HRS PRN PO FEVER; Start 10/11/18 at 14:30 ; Stop 10/12/18 at 14:29; Status DC Ciprofloxacin/ Dextrose 200 ml @ 200 mls/hr 1X ONCE IV Last administered on at 15:17; Start 10/11/18 at 14:45; Stop 10/11/18 at 15:44; Status DC Diltiazem HCl (Cardizem) 30 mg BID PO Last administered on 10/14/18at 10:28; Start 10/11/18 at 21:00 Apixaban (Eliquis) 5 mg BID PO Last administered on 10/14/18 10:29; Start 08/19 at 21:00 Info (Anti-Coagulation Monitoring By Pharmacy) 1 each PRN DAILY PRN MC SEE COMMENTS; Start 10/11/18 at 17:15 Simvastatin (Zocor) 10 mg HS PO Last administered on 10/13/18at 19:20; Start 08/19 at 21:00 Tamsulosin HCl (Flomax) 0.4 mg DAILY PO Last administered on 10/14/18at 10:28; Start 10/12/18 at 09:00 Donepezil HCl (Aricept) 5 mg QHS PO Last administered on 10/13/18 19:19; Start 10/11/18 at 21:00 Hydrochlorothiazide (Microzide) 12.5 mg DAILY PO Last administered on 10:28; Start 10/12/18 at 09:00 Lisinopril (Prinivil) 20 mg DAILY PO Last administered on 10/14/18at 10:29; Start 10/12/18 at 09:00 Trazodone HCl (Desyrel) 100 mg PRN QHS PRN PO sleep Last administered on 19:19; Start 10/12/18 at 21:00 Olanzapine (ZyPREXA IM) 5 mg PRN BID PRN IM agitation Last administered on 10/12at 14:47; Start 10/12/18 at 14:15; Stop 10/13/18 at 10:44; Status DC Ziprasidone (Geodon) 20 mg PRN QHS PRN PO sleep Last administered on 10/12/18at 19:43; Start 10/12/18 at 14:15; Stop 10/13/18 at 10:44; Status DC Lorazepam (Ativan) 0.5 mg 1X ONCE PO Last administered on 10/12/18at 19:06; Start 10/12/18 at 19:30; Stop 10/12/18 at 19:31; Status DC Olanzapine (ZyPREXA IM) 10 mg PRN BID PRN IM agitation; Start 10/13/18 at 10:45 Ziprasidone (Geodon) 20 mg PRN BID PRN PO sleep/agitation Last administered on 10/13/18at 19:19; Start 10/13/18 at 10:45 Active Scripts Active Tamsulosin Hcl 0.4 Mg Cap.er.24h 0.4 Mg PO DAILY 30 Days Reported Hydrochlorothiazide 12.5 Mg Capsule 12.5 Mg PO DAILY Donepezil Hcl 5 Mg Tablet 1 Tab PO HS Quinapril Hcl 20 Mg Tablet 20 Mg PO DAILY Simvastatin 10 Mg Tablet 10 Mg PO HS Eliquis (Apixaban) 5 Mg Tablet 5 Mg PO BID Vitals/I & O Vital Sign - Last 24 Hours 10/13/18 10/13/18 10/13/18 10/13/18 15:33 19:00 19:15 19:20 Temp 97.6 97.4 97.6 97.4 Pulse 80 88 88 Resp 20 16 B/P (MAP) 108/57 (74) 122/53 (76) 122/53 Pulse Ox 100 99 O2 Delivery Room Air Room Air Room Air 10/13/18 10/14/18 10/14/18 10/14/18 23:00 03:00 07:00 08:00 O2 Delivery Room Air Room Air Room Air Room Air 10/14/18 10/14/18 10/14/18 10:28 10:29 10:48 Temp 97.6 97.6 Pulse 94 94 94 Resp 18 B/P (MAP) 143/73 143/73 143/73 (96) Pulse Ox 97 O2 Delivery Room Air Intake and Output 10/13/18 10/13/18 10/14/18 15:01 23:01 07:01 Intake Total 180 ml 575 ml Output Total 0 ml Balance 180 ml 575 ml 0 ml ARRON ADHIKARI III DO Oct 14, 2018 12:07
--- NOTE | 2018-10-14 14:20 | NUR ---
[facility] and [facility]. Pt has been accepted at [facility]. BEVERLEY notified pt's niece, Leticia via phone and she stated she will notify BEVERLEY with a decision on placement after speaking with family. BEVERLEY requested RN to dc 1:1 on pt to see how he does without a sitter. Addendum: 10/14/18 at 1555 by RUBEN LOWERY Pt's family agreeable with [facility]. Pt's niece Leticia will meet with Clementina at [facility] [employer] to discuss financial status and Manuela will be visiting center. [facility] is able to take pt tomorrow.
[2018-10-14 14:38] VITALS: BP 96/47
[2018-10-14 19:00] VITALS: BP 100/51
--- NOTE | 2018-10-14 19:35 | NUR ---
Pt. calm and oriented to person and place at this time. No 1:1 needed. Will continue to monitor.
[2018-10-14] MEDS: DONEPEZIL HCL 10 MG TABLET. PO SCH (20:18)
[2018-10-14] MEDS: traZODone 100 MG TABLET. PO PRN (20:18)
[2018-10-14] MEDS: ZIPRASIDONE 20 MG CAPSULE PO PRN (20:19)
[2018-10-14] MEDS: SIMVASTATIN 10 MG TABLET PO SCH (20:19)
[2018-10-14 23:00] VITALS: BP 104/49
--- NOTE | 2018-10-15 03:13 | NUR ---
Pt. awake and unwilling to wear tele monitor or have vitals taken. Angry at this time. Will continue to monitor.
--- NOTE | 2018-10-15 06:00 | NUR ---
Orlin rangel called for pt at 0510. Pt. woke up confused and wanted to leave. Headed for the exit while pushing staff members out of the way. Pt. eventually convinced to go back to room and eventually fell asleep.
[2018-10-15 08:02] VITALS: BP 134/74
[2018-10-15] MEDS: APIXABAN 5 MG TABLET. PO SCH (08:18)
[2018-10-15 08:19] VITALS: BP 134/74
[2018-10-15] MEDS: hydroCHLOROthiazide 12.5 MG CAPSULE PO SCH (08:19)
[2018-10-15] MEDS: ZIPRASIDONE 20 MG CAPSULE PO PRN (08:19)
[2018-10-15] MEDS: dilTIAZem HCL 30 MG TABLET PO SCH (08:19)
[2018-10-15] MEDS: TAMSULOSIN 0.4 MG CAP.ER.24H. PO SCH (08:19)
[2018-10-15] MEDS ORDERED: LISINOPRIL 5 MG TABLET. PO SCH (09:00)
--- NOTE | 2018-10-15 10:59 | NUR ---
Patient continues to refuse to wear tele monitor. Monitor has stayed off.
--- NOTE | 2018-10-15 11:29 | DISCH ---
DISCHARGE DISCHARGE INFORMATION: FINAL DIAGNOSIS Problems Medical Problems: (1) A-fib Status: Acute (2) Total self-care deficit Status: Acute (3) UTI (urinary tract infection) Status: Acute CONDITION ON DISCHARGE: Stable CODE STATUS: Code Status: Full JAIL: SNF STAY <30 DAYS: Yes HOSPICE: HOSPICE: No HOSPICE EVAL & TREAT: No LTAC: ADMIT TO LTAC: No POST DISCHARGE ORDERS: ACTIVITY ORDERS: Activity as tolerated WEIGHT BEARING STATUS: No restrictions BATHING ORDERS: Shower-keep dressing dry, No Tub Bath until see WOUND/INCISION CARE: No wound care needed TREATMENT/EQUIPMENT ORDERS: ADAPTIVE EQUIPMENT NEEDED: None Physical Therapy For: Evalulation/Treatment Occupational Therapy For: Evaluation/Treatment Speech Language Pathology For: Evaluation/Treatment DISCHARGE MEDICATIONS: Home Meds Active Scripts Tamsulosin Hcl (TAMSULOSIN HCL) 0.4 Mg Cap.er.24h, 0.4 MG PO DAILY for 30 Days, #30 TAB Prov:Mary ESCALANTE MD 02/23/17 Reported Medications Hydrochlorothiazide (Hydrochlorothiazide) 12.5 Mg Capsule, 12.5 MG PO DAILY for htn, CAP 10/11/18 Donepezil Hcl (DONEPEZIL HCL) 5 Mg Tablet, 1 TAB PO HS for dementia, #30 TAB 5 Refills 05/23/17 Quinapril Hcl (QUINAPRIL HCL) 20 Mg Tablet, 20 MG PO DAILY for htn, TAB 02/21/16 Simvastatin (SIMVASTATIN) 10 Mg Tablet, 10 MG PO HS for FOR CHOLESTEROL, #30 TAB 0 Refills 02/21/16 Apixaban (ELIQUIS) 5 Mg Tablet, 5 MG PO BID for blood thinner 02/21/16 ARRON ADHIKARI III DO Oct 15, 2018 11:29
--- NOTE | 2018-10-15 11:41 | DISCH ---
DISCHARGE DISCHARGE INFORMATION: FINAL DIAGNOSIS Problems Medical Problems: (1) A-fib Status: Acute (2) Total self-care deficit Status: Acute (3) UTI (urinary tract infection) Status: Acute CONDITION ON DISCHARGE: Stable CODE STATUS: Code Status: Full SENIOR LIVING: SNF STAY <30 DAYS: Yes HOSPICE: HOSPICE: No HOSPICE EVAL & TREAT: No LTAC: ADMIT TO LTAC: No POST DISCHARGE ORDERS: ACTIVITY ORDERS: Activity as tolerated WEIGHT BEARING STATUS: No restrictions BATHING ORDERS: Shower-keep dressing dry, No Tub Bath until see WOUND/INCISION CARE: No wound care needed TREATMENT/EQUIPMENT ORDERS: ADAPTIVE EQUIPMENT NEEDED: None Physical Therapy For: Evalulation/Treatment Occupational Therapy For: Evaluation/Treatment Speech Language Pathology For: Evaluation/Treatment DISCHARGE MEDICATIONS: Home Meds Active Scripts Tamsulosin Hcl (TAMSULOSIN HCL) 0.4 Mg Cap.er.24h, 0.4 MG PO DAILY for 30 Days, #30 TAB Prov:Mary ESCALANTE MD 02/23/17 Reported Medications Hydrochlorothiazide (Hydrochlorothiazide) 12.5 Mg Capsule, 12.5 MG PO DAILY for htn, CAP 10/11/18 Donepezil Hcl (DONEPEZIL HCL) 5 Mg Tablet, 1 TAB PO HS for dementia, #30 TAB 5 Refills 05/23/17 Quinapril Hcl (QUINAPRIL HCL) 20 Mg Tablet, 20 MG PO DAILY for htn, TAB 02/21/16 Simvastatin (SIMVASTATIN) 10 Mg Tablet, 10 MG PO HS for FOR CHOLESTEROL, #30 TAB 0 Refills 02/21/16 Apixaban (ELIQUIS) 5 Mg Tablet, 5 MG PO BID for blood thinner 02/21/16 ARRON ADHIKARI III DO Oct 15, 2018 11:41
--- NOTE | 2018-10-15 11:44 | PDOC ---
PROGRESS NOTES Chief Complaint Chief Complaint CC: Failure to thrive. Depression History of Present Illness History of Present Illness Patient seen and examined.Discussed possible options for discharge. Vitals Vitals Vital Signs Date Time Temp Pulse Resp B/P (MAP) Pulse Ox O2 Delivery O2 Flow Rate FiO2 10/15/18 08:19 94 134/74 10/15/18 08:02 98.3 18 99 Room Air 98.3 Physical Exam General: Alert, Oriented X3, Cooperative, No acute distress, mild distress Heart: Regular rate, Normal S1, Normal S2, Other (AFIB; 2/6 systolic murmur to LLS border) Lungs: Clear Abdomen: Soft, No tenderness Extremities: No cyanosis, No edema Skin: No breakdown, No significant lesion Review of Systems Review of Systems Heart: denies chest pain lungs: denies soa Integument:denies rashes Assessment and Plan Assessmemt and Plan Assessment 1. Normal bereavement 2. Failure to thrive symptoms Plan: 1. Labs 2. PT OT 3. Fall risk 4. Regular diet 5. Home meds 6. Plan to discharge to [facility] Comment Review of Relevant I have reviewed the following items shoaib (where applicable) has been applied. Labs Microbiology 10/11/18 Urine Culture - Final, Complete 10/11/18 Urine Culture Result 1 (ALEXIA) - Final, Complete Medications Current Medications Sodium Chloride 1,000 ml @ 1,000 mls/hr 1X ONCE IV Last administered on at 13:53; Start 10/11/18 at 13:45; Stop 10/11/18 at 14:44; Status DC Alprazolam (Xanax) 0.25 mg PRN Q8HRS PRN PO ANXIETY Last administered on at 20:24; Start 10/11/18 at 14:00 Acetaminophen (Tylenol) 500 mg PRN Q6HRS PRN PO MILD PAIN / TEMP; Start at 14:00 Ibuprofen (Motrin) 400 mg PRN Q6HRS PRN PO INFLAMMATION; Start 10/11/18 at 14: 00 Temazepam (Restoril) 7.5 mg PRN QHS PRN PO INSOMNIA Last administered on at 20:22; Start 10/11/18 at 14:00 Al Hydroxide/Mg Hydroxide (Mylanta Plus Xs) 30 ml PRN Q2HR PRN PO HEARTBURN / GAS; Start 10/11/18 at 14:00 Ondansetron HCl (Zofran) 4 mg PRN Q8HRS PRN IV NAUSEA/VOMITING; Start 10/11/18 at 14:30; Stop 10/12/18 at 14:29; Status DC Acetaminophen (Tylenol) 650 mg PRN Q4HRS PRN PO FEVER; Start 10/11/18 at 14:30 ; Stop 10/12/18 at 14:29; Status DC Ciprofloxacin/ Dextrose 200 ml @ 200 mls/hr 1X ONCE IV Last administered on at 15:17; Start 10/11/18 at 14:45; Stop 10/11/18 at 15:44; Status DC Diltiazem HCl (Cardizem) 30 mg BID PO Last administered on 10/15/18at 08:19; Start 10/11/18 at 21:00 Apixaban (Eliquis) 5 mg BID PO Last administered on 10/15/18at 08:18; Start 08/19 at 21:00 Info (Anti-Coagulation Monitoring By Pharmacy) 1 each PRN DAILY PRN MC SEE COMMENTS; Start 10/11/18 at 17:15 Simvastatin (Zocor) 10 mg HS PO Last administered on 10/14/18at 20:19; Start 08/19 at 21:00 Tamsulosin HCl (Flomax) 0.4 mg DAILY PO Last administered on 10/15/18at 08:19; Start 10/12/18 at 09:00 Donepezil HCl (Aricept) 5 mg QHS PO Last administered on 10/14/18at 20:18; Start 10/11/18 at 21:00 Hydrochlorothiazide (Microzide) 12.5 mg DAILY PO Last administered on at 08:19; Start 10/12/18 at 09:00 Lisinopril (Prinivil) 20 mg DAILY PO Last administered on 10/14/18at 10:29; Start 10/12/18 at 09:00; Stop 10/15/18 at 07:21; Status DC Trazodone HCl (Desyrel) 100 mg PRN QHS PRN PO sleep Last administered on at 20:18; Start 10/12/18 at 21:00 Olanzapine (ZyPREXA IM) 5 mg PRN BID PRN IM agitation Last administered on 10/12at 14:47; Start 10/12/18 at 14:15; Stop 10/13/18 at 10:44; Status DC Ziprasidone (Geodon) 20 mg PRN QHS PRN PO sleep Last administered on 10/12/18at 19:43; Start 10/12/18 at 14:15; Stop 10/13/18 at 10:44; Status DC Lorazepam (Ativan) 0.5 mg 1X ONCE PO Last administered on 10/12/18at 19:06; Start 10/12/18 at 19:30; Stop 10/12/18 at 19:31; Status DC Olanzapine (ZyPREXA IM) 10 mg PRN BID PRN IM 2ND CHOICE AGIATATION; Start 10/13 at 10:45 Ziprasidone (Geodon) 20 mg PRN BID PRN PO AGITATION; 2ND CHOICE INSOMNIA Last administered on 10/15/18at 08:19; Start 10/13/18 at 10:45 Lisinopril (Prinivil) 5 mg DAILY PO Last administered on 10/15/18at 08:19; Start 10/15/18 at 09:00 Active Scripts Active Tamsulosin Hcl 0.4 Mg Cap.er.24h 0.4 Mg PO DAILY 30 Days Reported Hydrochlorothiazide 12.5 Mg Capsule 12.5 Mg PO DAILY Donepezil Hcl 5 Mg Tablet 1 Tab PO HS Quinapril Hcl 20 Mg Tablet 20 Mg PO DAILY Simvastatin 10 Mg Tablet 10 Mg PO HS Eliquis (Apixaban) 5 Mg Tablet 5 Mg PO BID Vitals/I & O Vital Sign - Last 24 Hours 10/14/18 10/14/18 10/14/18 10/14/18 14:38 19:00 19:05 20:19 Temp 97.8 98.1 97.8 98.1 Pulse 79 81 81 Resp 16 20 B/P (MAP) 96/47 (63) 100/51 (67) 100/51 Pulse Ox 97 100 O2 Delivery Room Air Room Air Room Air 10/14/18 10/15/18 10/15/18 10/15/18 23:00 03:00 07:00 08:00 Temp 97.6 97.6 Pulse 87 Resp 20 18 18 B/P (MAP) 104/49 (67) Pulse Ox 96 O2 Delivery Room Air Room Air Room Air Room Air 10/15/18 10/15/18 10/15/18 08:02 08:19 08:19 Temp 98.3 98.3 Pulse 94 94 94 Resp 18 B/P (MAP) 134/74 (94) 134/74 134/74 Pulse Ox 99 O2 Delivery Room Air Intake and Output 10/14/18 10/14/18 10/15/18 15:01 23:01 07:01 Intake Total 610 ml 120 ml 250 ml Balance 610 ml 120 ml 250 ml Nutrition Consultation Dietary Evaluation: Recommendations by RD: Increase Calorie Intake, Protein supplementation Comments: offer ensure enlive, ensure pudding, snacks from unit prn Expected Outcomes/Goals: to meet >75% est nutr needs stable wt Malnutrition Findings: Body Fat Depletion (Non Severe: Mild Depletion Weight Status: Underweight ARRON ADHIKARI III, DO Oct 15, 2018 11:44
--- NOTE | 2018-10-15 13:10 | NUR ---
BEVERLEY following pt. BEVERLEY phoned and faxed orders to [facility]. Pt will transport via [facility] arranged w/c van at 1400. BEVERLEY notified pt's family Manuela, Leticia and Eric via phone. Family agreeable with dc plan. Pt also agreeable with going to rehab. Packet on chart. COURTNEY AMAYA.
--- NOTE | 2018-10-15 15:37 | NUR ---
Patient discharged to [facility], set up by Jared LOWERY. Patient and family aware and agreeable of plans. This RN gave report to [place] with all questions and concerns with call back number given if additional questions were to arise. Patient alert and stable upon discharge, no new medications. IV discontinued. Patient accompanied by transportation personnel. All belongings with patient
--- NOTE | 2018-11-06 12:19 | DS ---
DATE OF DISCHARGE: 10/15/2018 ADMISSION DIAGNOSES: Failure to thrive and depression. DISCHARGE DIAGNOSIS: Failure to thrive. HOSPITAL COURSE: The patient is a pleasant 88-year-old male who was admitted for failure to thrive and depression. He was admitted. We did physical therapy and occupational therapy and got him evaluated at residential. He was discharged to skilled. DISPOSITION: Skilled. ACTIVITY: As tolerated. DIET: Low sodium. MEDICATIONS: Please see the MRAD. TOTAL TIME: 39 minutes. ARRON ADHIKARI DO DR: YENNIFER/rivka JOB#: [id number] / [id number]
== END 2018-10-15 15:42 | DRG 690 ==
LOC: ER 11:51 → 5 NORTH 13:25
PROVIDERS: ADMIT Internal Medicine; ATTEND Internal Medicine
DX: N39.0 Urinary tract infection, site not specified (principal); R62.7 Adult failure to thrive; I48.91 Unspecified atrial fibrillation; E78.00 Pure hypercholesterolemia, unspecified; E78.5 Hyperlipidemia, unspecified; F03.90 Unspecified dementia, unspecified severity, without behavioral disturbance, psychotic disturbance, mood disturbance, and anxiety; I10 Essential (primary) hypertension; N40.1 Benign prostatic hyperplasia with lower urinary tract symptoms; Z63.4 Disappearance and death of family member; Z82.49 Family history of ischemic heart disease and other diseases of the circulatory system; F32.9 Major depressive disorder, single episode, unspecified; F41.9 Anxiety disorder, unspecified; M19.90 Unspecified osteoarthritis, unspecified site; Z90.49 Acquired absence of other specified parts of digestive tract; Z88.0 Allergy status to penicillin
CPT/HCPCS: 36415; 70450; 71045; 80048; 80053; 80307; 81001; 83735; 83880; 84443; 84484; 85025; 85610; 87086; 93005; 93306; 96360; J0744; J3490; J7030; 99285-25; G0378